=== PATIENT | male | born 1970 | race Caucasian/White ===

== ENCOUNTER → 2023-04-24 13:50 | Outpatient (REF) | payer OTHER, SELFPAY | LOC: DHCBC HW 13:50 | PROVIDERS: ATTENDING PHYSICIAN Internal Medicine; FAMILY PHYSICIAN Physician Assistant Medical | DX: I42.8 Other cardiomyopathies (principal); R06.00 Dyspnea, unspecified; I45.4 Nonspecific intraventricular block | CPT/HCPCS: 93306 ==

== ENCOUNTER → 2024-01-02 09:06 | Outpatient (REF) | payer OTHER, SELFPAY | LOC: HWRAD 09:06 | PROVIDERS: ATTENDING PHYSICIAN Urology; FAMILY PHYSICIAN Physician Assistant Medical | DX: C67.8 Malignant neoplasm of overlapping sites of bladder (principal) | CPT/HCPCS: 71260; 74178; Q9967 ==

== ENCOUNTER 2024-02-07 23:04 | Emergency (ER) | payer OTHER, SELFPAY ==
[2024-02-07 23:10] VITALS: BMI 30.5
[2024-02-07 23:23] VITALS: BP 118/89
[2024-02-07 23:33] LABS: % Basophils 0.8 % (0-2); % Eosinophils 0.3 % (0-6); % Immature Granulocytes 0.2 % (0-0.5); % Lymphocytes 46.8 % (20.5-51.1); % Monocytes 8.6 % (1.7-9.3); % Neutrophils 43.3 % (42.2-75.2); Absolute Basophils 0.1 10^3/uL (0-0.2); Absolute Lymphocytes 2.9 10^3/uL (1.2-3.4); Absolute Monocytes 0.5 10^3/uL (0.1-0.6); Absolute Neutrophils 2.7 10^3/uL (1.4-6.5); Hemoglobin 15.6 g/dL (13.0-18.0); Mean Corp Hgb Conc. 35.5 g/dL (33.0-37.0); Mean Corpuscular Hgb 30.8 pg (27.0-31.0); Mean Corpuscular Volume 86.8 fL (80.0-94.0); Mean Platelet Volume 9.3 fL (7.4-10.4); Nucleated Red Blood Cells % 0 % (-); Platelet Count 281 10^3/uL (130-400); Red Blood Cell Count 5.07 10^6/uL (4.70-6.10); Red Cell Dist. Width 11.9 % (11.5-14.5); White Blood Cell Count 6.3 10^3/uL (4.8-10.8)
[2024-02-07] MEDS: ATIVAN 1 MG IV (23:44)
[2024-02-07] MEDS: NSS 1000 IV (23:44)
[2024-02-08] VITALS: BP 128/85
[2024-02-08] LABS: ALT (SGPT) 93 U/L (0-50); AST (SGOT) 73 U/L (17-59); Albumin 4.9 g/dl (3.5-5.0); Alkaline Phosphatase 112 U/L (38-126); Blood Urea Nitrogen 22 mg/dl (9-20); Calcium 9.3 mg/dl (8.4-10.2); Carbon Dioxide 20 mmol/L (22-30); Chloride 100 mmol/L (98-107); Estimated Creatinine Clearance > 125 ml/min; Glucose 110 mg/dl (70-99); Potassium 4.1 mmol/L (3.5-5.1); Sodium 137 mmol/L (135-145); Total Protein 7.4 g/dl (6.3-8.2); eGFR > 60.00
[2024-02-08 00:37] LABS: Magnesium 2.2 mg/dl (1.6-2.3)
[2024-02-08 01:00] VITALS: BP 115/78
[2024-02-08 02:00] VITALS: BP 117/84
--- NOTE | 2024-02-08 02:41 | ED.GENMED ---
History of Present Illness
General
Chief Complaint: Alcohol Problem
Source: patient
Exam Limitations: none
Time Seen by Provider: 02/07/24 23:37
Nursing documentation reviewed up to this point in time: agreed with
History of Present Illness
History of Present Illness:
Patient presents to ED for evaluation with concern for developing or experiencing early signs of alcohol withdrawal. Patient who had been sober for an extended period of time, states that he relapsed and has been drinking alcohol daily for the past
5 days. Patient's last alcoholic consumption was approximately 12 hours prior to arrival. Patient is complaining of feeling nauseous and 'jittery'. Denies fever or chills. Denies diarrhea. Denies abdominal pain. Denies headache. Patient has
experienced similar alcohol withdrawal symptoms in the past. At this time, however, patient is not interested in inpatient alcohol rehab treatment, as he already has an outpatient therapy set up. Patient requesting treatment to alleviate alcohol
withdrawal symptoms.
Past History
Past History
ED Past Medical History: Psychiatric (Alcohol abuse, depression)
ED Past Surgical History: Urological
Social History
Tobacco: Smoker
Alcohol: Chronic alcoholic
Review of Systems
Review of Systems
Allergies reviewed?: Yes
All Other Systems: ROS reviewed and negative except as documented in HPI and ROS
Constitutional: Reports no symptoms; Denies fever or chills
Respiratory: Reports no symptoms; Denies trouble breathing
Cardiac: Reports no symptoms
ABD/GI: Reports nausea; Denies abdominal pain, vomiting or diarrhea
Musculoskeletal: Reports no symptoms
Skin: Reports no symptoms
Neurological: Reports no symptoms
Phy Exam
Physical Exam
Physical Exam:
Physical Exam
General: no apparent distress, not acutely ill. afebrile
Head: nc/at. eomi
Neck: supple. normal range of motion
Heart: s1/s2 regular rate and rhythm, no murmur. equal radial pulses.
Lungs: no acute respiratory distress. clear bilaterally
Abdomen: normal bowel sounds. not tender. no distention
Neuro: alert and oriented. no focal neurological deficits
Skin: no rash
Psychiatric: well kept. interactive and cooperative
Extremities: no edema. no calf tenderness.
Scores
Withdrawal Assessment of Alcohol
Withdrawal Assessment Completed?: Yes
Nausea and Vomiting: No nausea and no vomiting
Tactile Disturbances: None
Tremor: No tremor
Auditory Disturbances: Not present
Paroxysmal Sweats: No sweat visible
Visual Disturbances: Not present
Anxiety: No anxiety, at ease
Headache, Fullness in Head: Not present
Agitation: Normal activity
Orientation and clouding of sensorium: Oriented and can do serial additions
Total CIWA Score: 0
Alcohol Withdrawal Medication Recommendation: Equal to MSAS Score 0-4. Monitor & re-assess q2hrs, NO MEDICATION NEEDED
Course
Orders/Labs/Results
Orders:
Orders
02/07/24 23:26
Complete Blood Count/With Diff Urgent
Comprehensive Metabolic Panel Urgent
Magnesium Urgent
Comment: ADDON
02/07/24 23:41
0.9% Sodium Chloride 1000 ml [Nss] 1,000 ml IV BOLUS
Lorazepam [Ativan] 1 mg IV NOW STA
02/07/24 23:55
Add On- LAB Urgent
Tests Added?: magnesium
02/07/24 23:56
Electrocardiogram (*1) Urgent
Reason for Study: QTc Monitoring
EKG- Treatment ONCE
Abnormal Lab Results
02/07/24
23:26
Carbon Dioxide 20 L mmol/L
(22-30)
BUN 22 H mg/dl
(9-20)
Glucose 110 H mg/dl
(70-99)
AST 73 H U/L
(17-59)
ALT 93 H U/L
(0-50)
12/20/24 23:26
02/07/24 23:26
Vital Signs
Initial and Last Documented VS:
Initial Vital Signs
Temp Pulse Ox
98.2 F 98
02/07/24 23:10 02/07/24 23:10
Last Documented Vital Signs
Temp Pulse Resp BP Pulse Ox
98.2 F 105 19 117/84 92
02/07/24 23:10 02/08/24 02:45 02/08/24 02:45 02/08/24 02:00 02/08/24 02:30
MDM/Problems Addressed
MDM/Problems Addressed:
Patient reports significant improvement in symptoms after treatment. Otherwise, patient remains afebrile, hemodynamically stable, and nontoxic-appearing. Patient without any tremulous activity nor vomiting during observation ED. As patient
declined intervention for inpatient treatment, patient will be discharged home with short course of Ativan, to be used, as needed at home, along with continual outpatient therapy.
*Critical Care Note
Total Time (30-74mins, 75-104mins- exclusive of procedures): Not Applicable
ED Attending Note
-
Portions of this chart may have been created with voice recognition software.� Occasional wrong word or��sound alike� substitutions may have occurred due to the inherent limitations of voice recognition software.
Discharge Plan
Departure
Patient Disposition: Home (Routine Discharge)
Date of Disposition: 02/08/24
Time of Disposition: 02:45
Patient with high blood pressure during this ER visit?: No
Condition: Good
Discharge Problem:
Alcohol dependence
Instructions: Alcohol Use Disorder (DC)
Prescriptions:
New
lorazepam [Ativan] 1 mg tablet
1 mg PO TID PRN (Reason: alcohol withdrawal) Qty: 5 0RF
No Action
fish oil-dha-epa 1 EACH capsule
1 cap PO DAILY
L.acidoph,paracasei,B.animalis 1 EACH capsule
2 ea PO DAILY
aspirin [Rodrigo Low Dose Aspirin] 81 MG tablet,delayed release (DR/EC)
81 mg PO DAILY
cholecalciferol (vitamin D3) 1,000 UNITS tablet
1,000 units PO DAILY
glucosamine martinez 2KCl-chondroit 1 EACH tablet
2 ea PO DAILY
Trulicity 1.5 MG/0.5 ML pen injector
1.5 mg SQ WE
acetaminophen [Tylenol Extra Strength] 500 MG tablet
500 - 1,000 mg PO PRN PRN (Reason: pain)
Centrum Silver Men 1 EACH tablet
1 ea PO DAILY
metoprolol succinate 25 MG tablet extended release 24 hr
25 mg PO DAILY
magnesium citrate,mag oxide 250 mg Capsule
1 mg PO DAILY
citalopram 40 mg Tablet
40 mg PO DAILY
Balance Of Nature Fruit
3 cap PO DAILY
Balance Of Nature Vegetable
3 cap PO DAILY
oxycodone 5 mg Tablet
5 mg PO Q4HPRN PRN (Reason: moderate pain) Qty: 15 0RF
diclofenac sodium 75 mg tablet,delayed release (DR/EC)
75 mg PO BID Qty: 20 0RF
Referrals:
Samm March DO [Family Provider] -
Activity Restrictions/Additional Instructions:
As discussed, please continue to follow-up with your outpatient group for continual treatment of alcohol dependence. Your prescription has been sent electronically to [facility] in [place].
Interventions
Interventions:
*Risk Screen - Suicide Last Done: 02/07/24 23:10
*General Assessment Last Done: 02/07/24 23:10
*Neglect/Abuse Screening Last Done: 02/07/24 23:10
ED- Fall Risk Assessment Last Done: 02/08/24 03:03
*ED COVID-19 Vaccine History Last Done: 02/07/24 23:10
*Nursing Disposition Last Done: 02/08/24 03:03
ED- Neurological Assessment Last Done: 02/07/24 23:10
ED-Psychological Assessment Last Done: 02/07/24 23:24
Discharge Date and Time
Discharge Date/Time: 02/08/24 03:04
Print Language: KISWAHILI
== END 2024-02-08 03:04 | disposition home or self-care (01) ==
LOC: EMR 23:04
PROVIDERS: EMERGENCY PHYSICIAN Emergency Medicine; FAMILY PHYSICIAN Family Medicine
DX: F10.20 Alcohol dependence, uncomplicated (principal); F32.A Depression, unspecified; F17.200 Nicotine dependence, unspecified, uncomplicated
CPT/HCPCS: 99283; 96374; 80053; 83735; 85025; 93005

== ENCOUNTER 2024-04-20 08:03 | Inpatient (IN) | payer OTHER, SELFPAY ==
[2024-04-17 19:29] VITALS: BP 161/100
[2024-04-17] MEDS: ATIVAN 2 MG IV (19:42)
[2024-04-17 19:45] LABS: % Basophils 0.4 % (0-2); % Eosinophils 0.1 % (0-6); % Immature Granulocytes 0.6 % (0-0.5); % Lymphocytes 22.2 % (20.5-51.1); % Monocytes 5.8 % (1.7-9.3); % Neutrophils 70.9 % (42.2-75.2); Absolute Lymphocytes 1.5 10^3/uL (1.2-3.4); Absolute Monocytes 0.4 10^3/uL (0.1-0.6); Absolute Neutrophils 4.7 10^3/uL (1.4-6.5); Hematocrit 41.2 % (39.0-52.0); Hemoglobin 14.6 g/dL (13.0-18.0); Mean Corp Hgb Conc. 35.4 g/dL (33.0-37.0); Mean Corpuscular Hgb 30.4 pg (27.0-31.0); Mean Corpuscular Volume 85.8 fL (80.0-94.0); Mean Platelet Volume 9.8 fL (7.4-10.4); Nucleated Red Blood Cells % 0 % (-); Platelet Count 221 10^3/uL (130-400); Red Cell Dist. Width 12.4 % (11.5-14.5); White Blood Cell Count 6.7 10^3/uL (4.8-10.8)
[2024-04-17 19:59] LABS: ALT (SGPT) 113 U/L (0-50); AST (SGOT) 100 U/L (17-59); Albumin 5.1 g/dl (3.5-5.0); Alkaline Phosphatase 143 U/L (38-126); Blood Urea Nitrogen 14 mg/dl (9-20); Calcium 9.1 mg/dl (8.4-10.2); Carbon Dioxide 17 mmol/L (22-30); Chloride 101 mmol/L (98-107); Glucose 95 mg/dl (70-99); Potassium 4.3 mmol/L (3.5-5.1); Sodium 137 mmol/L (135-145); Total Bilirubin 1.4 mg/dl (0.2-1.3); Total Protein 7.7 g/dl (6.3-8.2); eGFR > 60.00
[2024-04-17 20:05] LABS: Alcohol None Detected
--- NOTE | 2024-04-17 20:54 | ED.GENMED ---
History of Present Illness
General
Chief Complaint: Alcohol Problem
Source: patient
Exam Limitations: none
Time Seen by Provider: 04/17/24 20:44
Nursing documentation reviewed up to this point in time: agreed with
History of Present Illness
History of Present Illness:
53-year-old male with a past medical history of hypertension, cardiomyopathy, prostate and bladder cancer status post resection and urostomy, diabetes, alcohol abuse who presents to the emergency department with concern for alcohol
withdrawal.Patient reports that he has a history of alcohol use but has been successful multiple times with staying sober in the past; most recently he says he was 8 years sober until January 2024. Has been drinking heavily since. He says that he
primarily drinks bourbon he says about 1/5 of bourbon a day. His last drink was around 8 AM. He says that in the evening he started to have withdrawal symptoms. He says he was having severe tremors, nausea and profuse vomiting. He says he was
sweating. He says he was having hallucinations. He says he has had severe alcohol withdrawal in the past and so he came to the ER to be evaluated and treated. He did receive Ativan prior to my initial assessment and says symptoms have improved.
Still has some nausea and mild tremor but not nearly as severe as initially. He did apparently have some chest pain earlier seems to have resolved as well. He denies any other complaints. Denies any drug use.
Past History
Past History
ED Past Medical History: Psychiatric (Alcohol abuse, depression)
ED Past Surgical History: Urological
Social History
Tobacco: Smoker
Alcohol: Chronic alcoholic
Review of Systems
Review of Systems
All Other Systems: ROS reviewed and negative except as documented in HPI and ROS
Constitutional: Denies fever
EENT: Denies sore throat or runny nose
Respiratory: Denies trouble breathing
Cardiac: Reports chest pain
ABD/GI: Reports nausea and vomiting; Denies abdominal pain
: Denies flank pain
Musculoskeletal: Denies neck pain or back pain
Neurological: Reports headache and other (Tremor); Denies dizzy
Psychiatric: Reports anxiety and hallucinations; Denies suicidal
Phy Exam
Physical Exam
Physical Exam:
General: Awake, alert, oriented x3; no acute distress
Head: Normocephalic, atraumatic
Eyes: Conjunctiva normal, sclera anicteric
Throat: Airway intact, handling secretions
Neck: Trachea midline, supple without meningismus
Lungs: Clear to auscultation bilaterally, no wheezing, rales, rhonchi
Heart: Tachycardia with regular rhythm, no murmurs, gallops, or rubs
Abd: Soft, non distended, nontender, urostomy in place
Skin: Warm, moist
Neuro: No gross deficits; mild tremor noted with movement but no resting tremor
Extremities: No edema in extremities, equal pulses in all extremities
Scores
Heart Failure Risk
Heart Failure Risk Score: Not Applicable
Heart Score for Chest Pain Patients
STEMI patient?: Not applicable
Withdrawal Assessment of Alcohol
Withdrawal Assessment Completed?: Yes
Nausea and Vomiting: Mild nausea with no vomiting
Tactile Disturbances: None
Tremor: Moderate, with patient's arms extended
Auditory Disturbances: Not present
Paroxysmal Sweats: No sweat visible
Visual Disturbances: Not present
Anxiety: Mild anxiety
Headache, Fullness in Head: Very mild
Agitation: Normal activity
Orientation and clouding of sensorium: Oriented and can do serial additions
Total CIWA Score: 7
Alcohol Withdrawal Medication Recommendation: Equal to MSAS Score 0-4. Monitor & re-assess q2hrs, NO MEDICATION NEEDED
Course
Orders/Labs/Results
Orders:
Orders
04/17/24 19:27
Electrocardiogram (*1) Urgent
Reason for Study: Abdominal Pain
EKG- Treatment ONCE
04/17/24 19:35
Lorazepam [Ativan] 2 mg IV NOW STA
04/17/24 19:38
Alcohol Urgent
Complete Blood Count/With Diff Urgent
Comprehensive Metabolic Panel Urgent
04/17/24 20:55
0.9% Sodium Chloride 1000 ml [Nss] 1,000 ml IV BOLUS
FOLic ACID [Folvite] 1 mg 0.9% Sodium Chloride 50 ml [Nss] 50 ml IV ONCE
Thiamine Injection 100 mg IV NOW STA
04/17/24 21:01
Ondansetron Injectable [Zofran] 4 mg IV NOW STA
04/17/24 21:03
Electrocardiogram (*1) Urgent
Reason for Study: Chest Pain
EKG- Treatment ONCE
04/17/24 21:30
Alcohol Urgent
Drug Screen, Urine [Urine Drug Abuse Screen] Urgent
Date Specimen was Collected: 04/17/24
Time Specimen was Collected: 21:14
Troponin I Urgent
04/17/24 23:00
Dextrose 5%/0.9%Sodchl 1000 ml [D5/0.9% Sodium Chloride] 1,000 ml IV 100 mls/hr
FOLic ACID [Folvite] 1 mg 0.9% Sodium Chloride 50 ml [Nss] 50 ml IV ONCE
Flush (0.9% Sodium Chloride) [Flush (Nss)] See Dose Instructions IV PER PROTOCOL
Abnormal Lab Results
04/17/24
19:38
Immature Gran % 0.6 H %
(0-0.5)
Carbon Dioxide 17 L mmol/L
(22-30)
Total Bilirubin 1.4 H mg/dl
(0.2-1.3)
AST 100 H U/L
(17-59)
ALT 113 H U/L
(0-50)
Alkaline Phosphatase 143 H U/L
(38-126)
Albumin 5.1 H g/dl
(3.5-5.0)
04/17/24 19:38
04/17/24 19:38
Vital Signs
Initial and Last Documented VS:
Initial Vital Signs
Temp Pulse Resp BP Pulse Ox
36.7 C 112 20 161/100 97
04/17/24 19:29 04/17/24 19:29 04/17/24 19:29 04/17/24 19:29 04/17/24 19:29
Last Documented Vital Signs
Temp Pulse Resp BP Pulse Ox
36.7 C 91 14 161/100 95
04/17/24 21:38 04/17/24 21:45 04/17/24 21:45 04/17/24 19:29 04/17/24 21:45
MDM/Problems Addressed
Differential Diagnosis Includes:
Alcohol withdrawal
MDM/Problems Addressed:
53-year-old male presents with alcohol withdrawal; last drink 8 AM received Ativan prior to my assessment symptoms have greatly improved. Withdrawal scoring on my assessment as noted above. No need for additional Ativan at this point but will need
to continue to monitor as he has history of significant withdrawal in the past. I did discuss with [facility] to evaluate. Usual labs were sent off in triage shows abnormal LFTs essentially stable. He does have metabolic acidosis with elevated anion
gap suspect alcoholic ketoacidosis. Added troponin given his complaint of chest pain as well as an EKG. Check alcohol and UDS. Treat with thiamine and folate, fluids.
Alcohol level negative. Troponin undetectable. UDS negative. Patient hypertensive, tachycardic, consistent mild tremor but resting comfortably no diaphoresis, no nausea or vomiting; hold on additional Ativan for now. Admit for continued
monitoring for alcohol withdrawal. Discussed with hospitalist.
Chronic conditions affecting care:
Alcohol use
*Pulse Oximetry
Patient hypoxic: no
*EKG
Interpreted by ED Provider?: Yes
Heart Rate: 81
Rate: normal
Rhythm: sinus
Pitts: normal axis
Interval: normal interval
QRS Pattern: normal QRS
Ischemia: no ischemia
*Critical Care Note
Total Time (30-74mins, 75-104mins- exclusive of procedures): Not Applicable
Data Reviewed
Review of Other/Old Records Reveals: Labs and Records
Source: patient and records
ED Attending Note
-
Portions of this chart may have been created with voice recognition software.� Occasional wrong word or��sound alike� substitutions may have occurred due to the inherent limitations of voice recognition software.
Discharge Plan
Departure
Patient Disposition: Admit
Date of Disposition: 04/17/24
Time of Disposition: 22:15
Admit to doctor: Dionicio
Presentation/result/management discussed w/ accepting MD/DO: Hospitalist
Discharge Problem:
Alcohol withdrawal, Alcoholic ketoacidosis
Prescriptions:
No Action
fish oil-dha-epa 1 EACH capsule
1 cap PO DAILY
aspirin [Rodrigo Low Dose Aspirin] 81 MG tablet,delayed release (DR/EC)
81 mg PO HS
cholecalciferol (vitamin D3) 1,000 UNITS tablet
1,000 units PO DAILY
glucosamine martinez 2KCl-chondroit 1 EACH tablet
2 ea PO DAILY
metoprolol succinate 25 MG tablet extended release 24 hr
25 mg PO HS
sildenafil 50 mg Tablet
50 mg PO DAILYPRN PRN (Reason: ed)
Theragen Tablet
1 tab PO DAILY
citalopram 20 mg Tablet
20 mg PO HS
albuterol sulfate 90 mcg/actuation Hfa Aerosol Inhaler
2 puff INHALATION R Q6HPRN PRN (Reason: sob)
Visbiome 112.5 billion cell Capsule
1 cap PO DAILY
magnesium oxide 400 mg magnesium Tablet
400 mg PO DAILY
Interventions
Interventions:
*General Assessment Last Done: 04/17/24 19:29
ED- Fall Risk Assessment Last Done: 04/17/24 21:47
ED- Neurological Assessment Last Done: 04/17/24 21:38
ED-Psychological Assessment Last Done: 04/17/24 21:38
Discharge Date and Time
Print Language: CHINESE
[2024-04-17] MEDS: THIAMINE INJECTION 100 MG IV (21:25)
[2024-04-17] MEDS: ZOFRAN 4 MG IV (21:25)
[2024-04-17 21:32] VITALS: BMI 33.6
[2024-04-17] MEDS: NSS 1000 IV (21:36)
[2024-04-17 21:53] LABS: Amphetamines Negative (Negative); Barbiturates Negative (Negative); Benzodiazepines Negative (Negative); Buprenorphine Negative (Negative); Cocaine Negative (Negative); Marijuana Negative (Negative); Methadone Negative (Negative); Methamphetamines Negative (Negative); Opiates Negative (Negative); Phencyclidine Negative (Negative); Tricyclic Antidepressants Negative (Negative)
[2024-04-17 22:00] VITALS: BP 146/90
[2024-04-17 22:00] LABS: Alcohol None Detected
[2024-04-17 22:10] LABS: Troponin I < 0.012 ng/ml
[2024-04-17] MEDS: D5/0.9% SODIUM CHLORIDE 1000 IV (22:37)
[2024-04-17 23:00] VITALS: BP 135/93
[2024-04-17] MEDS: FOLVITE 50.2 MG IV (23:30)
--- NOTE | 2024-04-17 23:38 | HPS.HSE ---
Family Physician
-
Family Physician:
Chief Complaint
-
Alcohol withdrawal symptoms
History of Present Illness
This is a 53-year-old male who has a past medical history significant for KANDIS, history of tobacco use, history of alcohol abuse and withdrawal, hyperlipidemia, type 2 diabetes not currently on any medications, history of prostate cancer status post
surgery, history of bladder cancer status post surgery, nonischemic cardiomyopathy with improvement in cardiac function who presents to the emergency department with withdrawal symptoms including agitation, hallucinations and tremors.
Patient reported that he drinks about three quarters of a liter of bourbon daily. He had a drink last night. When he arose this morning he felt nauseated and vomited. He started drinking again for symptom relief. However continued to have nausea
vomiting so he stopped drinking. He then developed tremors continued nausea vomiting and then reported to have seen people when they were not there. He reports that he has not been in the hospital for withdrawal seizures in the past but felt that
he had had a withdrawal seizure at home in the past.
Patient reported that he has been sober for several years beside drinking again 2 months ago due to stressors in the family. He denies any other recreational drug use. He continues to smoke tobacco daily.
In the emergency department he received 1 dose of lorazepam and he has been comfortable and sedated since.
Blood pressure was 160/100 with a pulse of 9181 was satting 95% on room air. ECG shows a normal sinus rhythm at a rate of 81. CBC was unremarkable. Electrolytes were stable except for bicarb of 17. Alcohol level was undetected. He had mild LFT
and T. bili abnormalities.
Medical History
Past Medical History
Past Medical History: Reports Cancer (Bladder cancer status post surgery), CHF (Nonischemic cardiomyopathy with recovered EF), Hypercholesterolemia, NIDDM, Psychiatric (Tobacco dependence, alcohol dependence, anxiety) and Other (KANDIS)
Past Surgical History: Reports Urological (Status post prostatectomy, bladder resection)
Social History
Tobacco: Smoker (1/2 pack/day)
Alcohol: Daily (0.75 L liquor daily)
Drug: None
Personal: Single
Living: With Family
Family History
Family History: Not pertinent
Allergies / Home Medications
Allergies reflects when Allergies were last updated in [employer].
Home Medications with original date entered in [employer]
Allergy/Medication List:
Allergies
Allergy/AdvReac Type Severity Reaction Status Date / Time
bee venom protein (honey bee) Allergy Swelling Verified 04/17/24 19:29
Home Medications
fish oil-dha-epa 1,200 mg-144 mg-216 mg capsule 1 cap PO DAILY Supplement 01/01/18
aspirin 81 mg tablet,delayed release (Rodrigo Low Dose Aspirin) 81 mg PO HS Blood clot prevention/tx 02/16/21
cholecalciferol (vitamin D3) 25 mcg (1,000 unit) tablet 1,000 units PO DAILY Supplement 02/16/21
glucosamine sulf dipotassium Cl 500 mg-chondroitin sulf 400 mg tablet 2 ea PO DAILY Supplement 02/16/21
metoprolol succinate 25 mg tablet,extended release 24 hr 25 mg PO HS Blood pressure 08/16/21
Lactobac no.2-Bifidobac no.1-S. thermo 112.5 billion cell capsule (Visbiome) 1 cap PO DAILY 04/17/24
albuterol sulfate 90 mcg/actuation aerosol inhaler 2 puff inhalation R Q6HPRN PRN sob 04/17/24
citalopram 20 mg tablet 20 mg PO HS 04/17/24
magnesium oxide 400 mg PO DAILY 04/17/24
sildenafil 50 mg tablet 50 mg PO DAILYPRN PRN ed 04/17/24
therapeutic multivitamin 1 tab PO DAILY 04/17/24
Review of Systems
-
History Source: Patient
Constitutional: Reports No Symptoms
EENT: Reports No Symptoms
Respiratory: Reports No Symptoms
Cardiac: Reports No Symptoms
Abdomen/GI: Reports Nausea and Vomiting
: Reports No Symptoms
Musculoskeletal: Reports No Symptoms
Skin: Reports No Symptoms
Neurological: Reports No Symptoms
Endocrine: Reports No Symptoms
Hematologic/Lymphatic: Reports No Symptoms
Psych: Reports No Symptoms
Physical Exam
Vital Signs
Vital Signs
Temp Pulse Resp BP Pulse Ox
98.1 F 91 14 161/100 95
04/17/24 21:38 04/17/24 21:45 04/17/24 21:45 04/17/24 19:29 04/17/24 21:45
Physical Exam
General: Well Developed, Well Nourished and Comfortable
HEENT: NormoCephalic, Anicteric, Moist mucous membranes and Atraumatic
Respiratory: Clear
Cardiac: S1/S2 and Regular Rhythm
Breast: Deferred by me
GI: Soft
Rectal: Deferred by Provider
Genito-urinary: Deferred by me
Musculoskeletal: No Clubbing, No Cyanosis and No Edema
Skin: Warm
Neuro: AO x 3 and Nonfocal/grossly intact
Hematologic/Lymphatic: No Lymphadenopathy
Psych: Calm
Laboratory Results
-
04/17/24 19:38
04/17/24 19:38
Laboratory Results
Total Bilirubin 1.4 mg/dl (0.2-1.3) H 04/17/24 19:38
AST 100 U/L (17-59) H 04/17/24 19:38
ALT 113 U/L (0-50) H 04/17/24 19:38
Alkaline Phosphatase 143 U/L (38-126) H 04/17/24 19:38
Troponin I < 0.012 ng/ml 04/17/24 21:30
Data Reviewed
-
Medical Tests (Nuc Med, Echo, EKG etc): Image Personally Visualized and interpreted
Lab Data: Labs Reviewed by me
Old Records: Reviewed
Impression/Plan
-
IMPRESSION:
Patient admitted with moderate alcohol withdrawal symptoms. He is currently with a CIWA score that is less than 3.
PLAN:
ETOH withdrawal
- admit to telemetry
- continue CIWA protocol with lorazepam
- IV fluids, thiamine, folate
- patient wants to return to outpatient rehab/meetings, did not consult psych, consulted case management
- declined inpatient rehab
- transaminitis due to etoh, follow up with cessation of etoh
- will continue his citalopram
- supportive measures
Bladder Ca s/p ileal conduit and end-ileostomy
- ostomy bag in place, drained as necessary
DVT PPX - lovenox sq
Code status - Full Code
[2024-04-18] VITALS (8 sets, daily range): BP systolic 121–157; BP diastolic 78–97; BMI 33.2
[2024-04-18] MEDS: NSS (PRESERVATIVE FREE) 0.5 ML IV (01:45)
[2024-04-18] MEDS: ATIVAN 1 MG IV ×2 (01:45→22:09)
[2024-04-18] MEDS: D5/0.9% SODIUM CHLORIDE 1000 IV ×3 (02:05→19:23)
--- NOTE | 2024-04-18 02:15 | PTCARENOTE ---
Pt brought up to 3 west via stretcher to room 332. Pt walked from stretcher to bed safely. Pt AAOx3, able to make needs known. Pt oriented to room, call kenyon within reach. Will continue to monitor pt.
[2024-04-18 07:51] LABS: Glucose - Point of Care 126 mg/dl (70-99)
[2024-04-18] MEDS: ATIVAN 1 MG PO ×3 (07:59→20:53)
[2024-04-18] MEDS: FOLVITE 1 MG PO (07:59)
[2024-04-18] MEDS: VITAMIN D3 (cholecalciferol) 25 MCG PO (07:59)
[2024-04-18] MEDS: THIAMINE INJECTION 200 MG IV ×2 (07:59→20:53)
[2024-04-18] MEDS: ANESTHETIC LOZENGE 1 LOZENGE PO ×2 (09:12→13:12)
[2024-04-18 11:11] LABS: Glycohemoglobin (HgbA1c) 6.1 % (4.0-5.6)
[2024-04-18 12:12] LABS: Glucose - Point of Care 137 mg/dl (70-99)
[2024-04-18 13:38] LABS: ALT (SGPT) 93 U/L (0-50); AST (SGOT) 67 U/L (17-59); Albumin 4.5 g/dl (3.5-5.0); Alkaline Phosphatase 105 U/L (38-126); Direct Bilirubin 0.3 mg/dl (0.0-0.4); Total Bilirubin 1.4 mg/dl (0.2-1.3); Total Protein 6.6 g/dl (6.3-8.2)
--- NOTE | 2024-04-18 14:40 | W.PN.HOSP.TC ---
Today's Communication/Plan
-
Discharge planning
Assessment / Plan
Assessment / Plan
53-year-old male with alcohol withdrawal symptoms
CVS: S1-S2 normal
Chest: CTA B/L
Abdomen: Soft, NT / Bowel sounds present
Extremities: No edema
[employer]: Non focal exam, no tremors
# Alcohol withdrawal
Continue MSAS protocol with lorazepam
Continue thiamine and folate
Patient wants to return to outpatient and not inpatient
Transaminitis secondary to alcohol
He is OK with [facility] referral
LFTs better
# History of cardiomegaly/nonischemic cardiomyopathy -continue metoprolol
Echo 04/24/2023-normal LV size and function. EF 60 to 65%. No valvular disease
Cardiac catheterization December 2017-mild global hypokinesis with a EF 46%, normal coronaries
# History of diabetes per chart -Hemoglobin A1c 6.1
# History of bladder cancer status post radical cystoprostatectomy with ileal conduit and end ileostomy 12/19/2021
History of urethral stricture with repair decades ago
# Sleep apnea-CPAP intolerant
# Obesity per BMI criteria
# Depression/anxiety-continue Lexapro
# Smoker-cessation counseling
# DVT prophylaxis-Lovenox
# Full code
D/W RN
Called [facility] and left a message
Lives with parents, currently not employed.
Anticipated Discharge: Within 24 hours
Subjective/Interval History
-
Date of Service: April 18, 2024
Objective Data
-
Labs:
Laboratory Results
04/18/24
08:02
Total Bilirubin 1.4 H
AST 67 H
ALT 93 H
Alkaline Phosphatase 105
Vital Signs:
Vital Signs
Temp Pulse Resp BP Pulse Ox
97.9 F 87 16 133/78 95
04/18/24 11:00 04/18/24 11:00 04/18/24 11:00 04/18/24 11:00 04/18/24 11:00
I&O
04/17/24 04/18/24 04/19/24
06:59 06:59 06:59
Output Total 500 / 500
Balance -500 / -500
[2024-04-18 15:06] LABS: Glucose - Point of Care 136 mg/dl (70-99)
[2024-04-18] MEDS: ZOFRAN 4 MG IV (15:45)
[2024-04-18 16:15] LABS: Blood Urea Nitrogen 15 mg/dl (9-20); Calcium 8.6 mg/dl (8.4-10.2); Carbon Dioxide 21 mmol/L (22-30); Chloride 103 mmol/L (98-107); Estimated Creatinine Clearance > 125 ml/min; Glucose 104 mg/dl (70-99); Potassium 3.8 mmol/L (3.5-5.1); Sodium 136 mmol/L (135-145); eGFR > 60.00
[2024-04-18 17:08] LABS: Glucose - Point of Care 55 mg/dl (70-99)
[2024-04-18 17:39] LABS: Glucose - Point of Care 129 mg/dl (70-99)
[2024-04-18] MEDS: LOVENOX 40 MG SC (17:41)
[2024-04-18 22:03] LABS: Glucose - Point of Care 97 mg/dl (70-99)
[2024-04-18] MEDS: TOPROL XL 25 MG PO (22:08)
[2024-04-18] MEDS: ASPIR LOW (ENTERIC COATED) 81 MG PO (22:08)
[2024-04-18] MEDS: CELEXA 20 MG PO (22:10)
[2024-04-18] MEDS: NSS (PRESERVATIVE FREE) 10 ML IV (22:12)
[2024-04-19 03:00] VITALS: BP 155/88
[2024-04-19] MEDS: D5/0.9% SODIUM CHLORIDE 1000 IV (04:02)
[2024-04-19] MEDS: THIAMINE INJECTION 200 MG IV ×2 (08:20→22:32)
[2024-04-19] MEDS: VITAMIN D3 (cholecalciferol) 25 MCG PO (08:20)
[2024-04-19] MEDS: FOLVITE 1 MG PO (08:20)
[2024-04-19 08:27] LABS: Glucose - Point of Care 107 mg/dl (70-99)
[2024-04-19 11:00] VITALS: BP 150/107
--- NOTE | 2024-04-19 11:16 | CM ---
Addendum entered by Zee Weber RN 04/19/24 13:26:
Discharge cancelled by MD.
Plan home tomorrow.
Original Note:
Patient with Dx Alcohol withdrawal. MSAS per nursing.
Spoke with patient who resides with his parents in a two story home with one step to enter.
The patient was independent with ADLs and ambulation without using an assistive device.
DME - walkers, wc, canes
No prior VN.
PCP - Leandra Eng
Pharmacy - [facility]
Patient agreed to speak with [facility].
Spoke with [facility]ATA Evans; he met with the patient who had previously attended AA, and who agreed to outpatient referrals with [facility].
The patient says he feels ready for d/c home today.
His brother will provide transport home.
No CM d/c needs identified.
Plan home today.
[2024-04-19] MEDS: ATIVAN 1 MG IV (11:49)
[2024-04-19 12:31] LABS: Glucose - Point of Care 113 mg/dl (70-99)
--- NOTE | 2024-04-19 13:21 | W.PN.HOSP.TC ---
Today's Communication/Plan
-
If alcohol withdrawal symptoms improve can be discharged tomorrow with outpatient services.
[facility] and [facility] wants to follow-[facility] .
Assessment / Plan
Assessment / Plan
53-year-old male with alcohol withdrawal symptoms
CVS: S1-S2 normal
Chest: CTA B/L
Abdomen: Soft, NT / Bowel sounds present
Extremities: No edema
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
# Alcohol withdrawal
Continue MSAS protocol with lorazepam
Continue thiamine and folate
Patient wants to return to outpatient and not inpatient
Transaminitis secondary to alcohol
[facility] referral
LFTs better
MSAS was 8 last night and also today tachycardic
# History of cardiomegaly/nonischemic cardiomyopathy -continue metoprolol
Echo 04/24/2023-normal LV size and function. EF 60 to 65%. No valvular disease
Cardiac catheterization December 2017-mild global hypokinesis with a EF 46%, normal coronaries
# History of diabetes per chart -Hemoglobin A1c 6.1
# History of bladder cancer status post radical cystoprostatectomy with ileal conduit and end ileostomy 12/19/2021
History of urethral stricture with repair decades ago
# Sleep apnea-CPAP intolerant
# Obesity per BMI criteria
# Depression/anxiety-continue Lexapro
# Smoker-cessation counseling
# DVT prophylaxis-Lovenox
# Full code
D/W RN
Discussed with case management
Anticipated Discharge: Within 24 hours
Subjective/Interval History
-
Date of Service: April 19, 2024
Objective Data
-
Vital Signs:
Vital Signs
Temp Pulse Resp BP Pulse Ox
98 F 98 16 150/107 98
04/19/24 11:00 04/19/24 11:00 04/19/24 11:00 04/19/24 11:00 04/19/24 11:00
I&O
04/18/24 04/19/24 04/20/24
06:59 06:59 06:59
Output Total 500 / 500
Balance -500 / -500
[2024-04-19 15:00] VITALS: BP 159/99
[2024-04-19] MEDS: ZOFRAN 4 MG IV (16:43)
[2024-04-19] MEDS: ATIVAN 1 MG PO ×2 (16:51→22:34)
[2024-04-19] MEDS: LOVENOX 40 MG SC (18:20)
[2024-04-19 18:24] LABS: Glucose - Point of Care 92 mg/dl (70-99)
[2024-04-19 20:00] VITALS: BP 125/91
[2024-04-19 21:42] LABS: Glucose - Point of Care 97 mg/dl (70-99)
[2024-04-19] MEDS: TOPROL XL 25 MG PO (22:32)
[2024-04-19] MEDS: ASPIR LOW (ENTERIC COATED) 81 MG PO (22:32)
[2024-04-19] MEDS: CELEXA 20 MG PO (22:34)
[2024-04-19 23:52] VITALS: BP 131/92
[2024-04-20 04:43] VITALS: BP 147/91; BMI 32.5
[2024-04-20 06:56] LABS: ALT (SGPT) 109 U/L (0-50); AST (SGOT) 92 U/L (17-59); Albumin 3.9 g/dl (3.5-5.0); Alkaline Phosphatase 95 U/L (38-126); Blood Urea Nitrogen 11 mg/dl (9-20); Calcium 9.5 mg/dl (8.4-10.2); Carbon Dioxide 28 mmol/L (22-30); Chloride 103 mmol/L (98-107); Estimated Creatinine Clearance > 125 ml/min; Glucose 110 mg/dl (70-99); Potassium 3.8 mmol/L (3.5-5.1); Sodium 139 mmol/L (135-145); Total Bilirubin 0.8 mg/dl (0.2-1.3); Total Protein 6.4 g/dl (6.3-8.2); eGFR > 60.00
[2024-04-20 08:05] LABS: Hematocrit 37.4 % (39.0-52.0); Hemoglobin 13.1 g/dL (13.0-18.0); Mean Corpuscular Hgb 30.8 pg (27.0-31.0); Mean Corpuscular Volume 87.8 fL (80.0-94.0); Mean Platelet Volume 10.5 fL (7.4-10.4); Platelet Count 143 10^3/uL (130-400); Red Blood Cell Count 4.26 10^6/uL (4.70-6.10); Red Cell Dist. Width 12.2 % (11.5-14.5); White Blood Cell Count 4.2 10^3/uL (4.8-10.8)
[2024-04-20 08:18] VITALS: BP 133/87
[2024-04-20] MEDS: VITAMIN D3 (cholecalciferol) 25 MCG PO (08:34)
[2024-04-20] MEDS: THIAMINE INJECTION 200 MG IV (08:34)
[2024-04-20] MEDS: FOLVITE 1 MG PO (08:34)
[2024-04-20 08:38] LABS: Glucose - Point of Care 115 mg/dl (70-99)
--- NOTE | 2024-04-20 09:02 | W.PN.HOSP.TC ---
Today's Communication/Plan
-
Will talk to CM for coordinating [facility]
Potentially discharge later today
Assessment / Plan
Assessment / Plan
53-year-old male presenting with alcohol withdrawal symptoms.
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
History of bladder cancer status post radical cystoprostatectomy with ileal conduit and end ileostomy 12/19/2021
History of urethral stricture with repair
KANDIS
Tobacco use disorder
Alcohol use disorder (been to rehab before)
Hypertension/nonischemic cardiomyopathy
Depression/anxiety
Obesity
# Alcohol withdrawal/alcohol use disorder
-Continue MSAS protocol-MSAS=1 and RASS=0 this morning
-Continue thiamine and folate, Ativan as needed
-Only required Ativan 1 mg last night
-Patient was advised regarding decreased intake/cessation
-[facility] referral sent
-Chronic alcoholic transaminitis
-Currently not tachycardic or agitated, no tremors seen-does not report nausea or vomiting
-Alert and oriented
-Can be potentially discharge later today
# History of cardiomegaly/nonischemic cardiomyopathy -continue metoprolol
-Echo 04/24/2023-normal LV size and function. EF 60 to 65%. No valvular disease
-Cardiac catheterization December 2017-mild global hypokinesis with a EF 46%, normal coronaries
-Continue aspirin and metoprolol 25
#History of diabetes per chart review
-Hemoglobin A1c 6.1
-Not taking any oral meds at home
-Low SSI
# Sleep apnea
-Not on CPAP at home
-Currently saturating well on room air
# Depression/anxiety
-Continue Lexapro
# Tobacco use disorder
-Advised patient regarding cessation
DVT prophylaxis
Lovenox
Anticipated Discharge: Within 24 hours
Subjective/Interval History
-
Date of Service: April 20, 2024
Patient does not offer any complaints.
Objective Data
-
Labs:
Laboratory Results
04/20/24
05:56
WBC 4.2 L
Hgb 13.1
Hct 37.4 L
Plt Count 143 D
Sodium 139
Potassium 3.8
Chloride 103
Carbon Dioxide 28
BUN 11
Creatinine 0.7
Glucose 110 H
Calcium 9.5
Total Bilirubin 0.8
AST 92 H
ALT 109 H
Alkaline Phosphatase 95
Vital Signs:
Vital Signs
Temp Pulse Resp BP Pulse Ox
97.9 F 79 12 133/87 94
04/20/24 08:18 04/20/24 08:18 04/20/24 08:18 04/20/24 08:18 04/20/24 08:18
I&O
04/19/24 04/20/24 04/21/24
06:59 06:59 06:59
Intake Total 960 / 960
Output Total 1350 / 1350
Balance -390 / -390
Review of Systems
-
History Source: Patient
All other systems: Reviewed and negative
Physical Exam
-
General: Well Developed and No Apparent Distress
HEENT: Normocephalic, Atraumatic and Moist Mucous Membranes
Respiratory: Clear to Auscultation
Cardiac: Regular Rhythm and S1/S2
GI: Soft, Nontender and Distended
Skin: Warm and Dry
Neuro: Awake, Alert, Oriented and AO x 3; Negative Tremors or Slurred Speech
Psych: Calm and Intact Judgement/Insight
--- NOTE | 2024-04-20 11:18 | CM ---
Patient seen at bedside. Patient confirmed his plan for discharge to go to [facility] for follow up and to return to AA meetings. Patient asked for [facility] to come to talk to him and CM called to liaison who stated they would be up in approx an hour.
information relayed to community organizer. CM will continue to follow for discharge planning needs.'
PLan; home with AA follow up with [facility] for additional programs.
[2024-04-20 11:30] VITALS: BP 143/91
[2024-04-20 11:54] LABS: Glucose - Point of Care 176 mg/dl (70-99)
--- NOTE | 2024-04-20 12:15 | W.PN.UPDATE ---
Update Note
Progress Note Update
I saw and evaluated the patient. I reviewed the resident�s note and agree with findings and plan as documented in the resident�s note.
Denies diaphoresis or hallucinations.
Gen: NAD, AAOx3.
Eyes: EOMI, PERRLA, no scleral icterus.
Neck: supple.
CV: RRR, +S1/S2, no m/r/g.
Resp: CTAB, no rales, wheezes, or rhonchi.
Abd: +BS, soft, NT, ND
Skin: No rashes.
Neuro: CN 2-12 intact, non-focal.
Psych: Normal mood and affect.
Acute alcohol withdrawal:
-cont MSAS protocol (thiamine/folate/PRN ativan)
-Transaminitis due to alcohol abuse, follow outpt
Other problems:
h/o cardiomegaly/nonischemic cardiomyopathy: cont BB/ASA
h/o DM2, current a1c 6.1%
h/o bladder CA s/p radical cystoprostatectomy with ileal conduit and end ileostomy 12/19/2021
h/o urethral stricture with repair decades ago
KANDIS, CPAP intolerant
Obesity due to excess calories
Depression/anxiety: cont Lexapro
Tobacco abuse disorder
FULL/Lovenox
Medically cleared for discharge.
Total time spent on d/c = 31 min. This included today's physical exam, progress note, review of laboratory and diagnostic data, preparation of discharge documents and prescriptions, and discussions about the pt's hospital course and discharge plan
with the patient and other medical service representative involved in the patient's care.
--- NOTE | 2024-04-20 13:19 | W.DCSUMMARY ---
Discharge Summary
Discharge Data
Date of Admission: 04/20/24
Date of Discharge: 04/20/24
-
Pending Results: No
Hospital Course
Patient is a 53-year-old male with a PMH of alcohol use disorder who presented to the ED with signs of alcohol withdrawal including tremors, sweating, nausea/vomiting, and visual hallucinations. On arrival, he was tachycardic and tachypneic with
moderate tremors. Initial labs showed ketonuria, and metabolic acidosis with elevated anion gap, suggesting alcoholic ketoacidosis. Symptoms improved with single dose of Ativan in ED. Thiamine, folate, and fluids were started and patient was
admitted due to history of severe withdrawal in the past.
Problem list:
1. Alcohol withdrawal:
Patient was placed on MSAS protocol with lorazepam as needed and continued to receive thiamine and folate. Per patient's request, referral was sent to [facility]. Symptoms completely resolved on day 3 of admission and patient could tolerate regular
diet. He required total of 3 mg Ativan during stay. Today he is medically stable for discharge to home. Patient is willing to participate in outpatient rehab and attend AA meetings.
2. Rest of chronic conditions were treated as prior to admission.
New changes in medication include folic acid 1 mg daily and thiamine 100 twice daily.
Discharge Plan
-
Patient Disposition: Home (Routine Discharge)
Condition: Good
Diet: No restrictions, Low Fat, Low Cholesterol, Low Sodium and Diabetic, Carb Controlled
Activity: No restrictions
Driving Restrictions: As prior to admission
Bathing Restrictions: None
Activity Restrictions/Additional Instructions:
return to AA meetings
follow up with [facility] for additional programs
Instructions: Alcohol withdrawal, Alcohol use disorder - Discharge instructions
Referrals:
Leandra Eng PA-C [Family Provider] -
Prescriptions:
New
folic acid 1 mg Tablet
1 mg PO DAILY 30 Days Qty: 30 0RF
thiamine mononitrate (vit B1) 100 mg Tablet
100 mg PO BID Qty: 60 0RF
Continued
fish oil-dha-epa 1 EACH capsule
1 cap PO DAILY
aspirin [Rodrigo Low Dose Aspirin] 81 MG tablet,delayed release (DR/EC)
81 mg PO HS
cholecalciferol (vitamin D3) 1,000 UNITS tablet
1,000 units PO DAILY
glucosamine martinez 2KCl-chondroit 1 EACH tablet
2 ea PO DAILY
metoprolol succinate 25 MG tablet extended release 24 hr
25 mg PO HS
sildenafil 50 mg Tablet
50 mg PO DAILYPRN PRN (Reason: ED)
therapeutic multivitamin Tablet
1 tab PO DAILY
citalopram 20 mg Tablet
20 mg PO HS
albuterol sulfate 90 mcg/actuation Hfa Aerosol Inhaler
2 puff INHALATION R Q6HPRN PRN (Reason: sob)
Visbiome 112.5 billion cell Capsule
1 cap PO DAILY
magnesium oxide 400 mg magnesium Tablet
400 mg PO DAILY
Discharge Orders:
Discharge Patient (As Directed); Ordered 04/20/24
Ordered By: Iram Flood
Discharge Date and Time
Print Language: SETSWANA
== END 2024-04-20 14:21 | disposition home or self-care (01) | DRG 897 ==
LOC: 3 WEST ACU 08:03
PROVIDERS: Hospitalist; Student in an Organized Health Care Education/Training Program; ADMITTING PHYSICIAN Internal Medicine; ATTENDING PHYSICIAN Internal Medicine; EMERGENCY PHYSICIAN Emergency Medicine; FAMILY PHYSICIAN Physician Assistant Medical
DX: F10.239 Alcohol dependence with withdrawal, unspecified (principal); I42.8 Other cardiomyopathies; Z79.899 Other long term (current) drug therapy; Z85.51 Personal history of malignant neoplasm of bladder; Z90.79 Acquired absence of other genital organ(s); G47.33 Obstructive sleep apnea (adult) (pediatric); F32.A Depression, unspecified; F41.9 Anxiety disorder, unspecified; Z79.82 Long term (current) use of aspirin; E11.9 Type 2 diabetes mellitus without complications; F17.210 Nicotine dependence, cigarettes, uncomplicated; E66.9 Obesity, unspecified; Z68.32 Body mass index [BMI] 32.0-32.9, adult; I11.9 Hypertensive heart disease without heart failure
CPT/HCPCS: 80048; 80053; 80076; 80306; 82077; 82962; 83036; 83735; 84100; 84484; 85025; 85027; 93005; 96365; 96366; 96375; 96376; 99284; 99406

== ENCOUNTER → 2024-10-29 08:34 | Outpatient (REF) | payer OTHER, SELFPAY | LOC: RAD 08:34 | PROVIDERS: ATTENDING PHYSICIAN Urology; FAMILY PHYSICIAN Physician Assistant Medical | DX: C67.8 Malignant neoplasm of overlapping sites of bladder (principal) | CPT/HCPCS: 71260; 74178; Q9967 ==

== ENCOUNTER → 2024-11-03 07:47 | Outpatient (REF) | payer OTHER, SELFPAY | LOC: RAD 07:47 | PROVIDERS: ATTENDING PHYSICIAN Internal Medicine Gastroenterology; FAMILY PHYSICIAN Physician Assistant Medical | DX: R79.89 Other specified abnormal findings of blood chemistry (principal) | CPT/HCPCS: 76700 ==

== ENCOUNTER 2024-11-29 22:05 | Inpatient (IN) | payer OTHER, SELFPAY ==
[2024-11-29] VITALS (15 sets, daily range): BP systolic 133–159; BP diastolic 89–126; BMI 30.1
[2024-11-29] MEDS: NSS 1000 IV ×2 (15:52→22:01)
[2024-11-29 16:12] LABS: Urine Character Slightly Cloudy (Clear)
[2024-11-29 16:18] LABS: Hematocrit 40.8 % (39.0-52.0); Hemoglobin 14.8 g/dL (13.0-18.0); Mean Corp Hgb Conc. 36.3 g/dL (33.0-37.0); Mean Corpuscular Volume 87.0 fL (80.0-94.0); Nucleated Red Blood Cells % 0 % (-); Platelet Count 133 10^3/uL (130-400); Red Cell Dist. Width 12.4 % (11.5-14.5)
[2024-11-29 16:20] LABS: Urine Squamous Cell 0-2 /LPF (Few)
[2024-11-29] MEDS: ZOFRAN 4 MG IV ×2 (16:34→21:18)
[2024-11-29] MEDS: VALIUM INJECTION 5 MG IV (16:34)
[2024-11-29 16:39] LABS: COVID-19 Antigen Negative (Negative)
[2024-11-29 16:40] LABS: Troponin I < 0.012 ng/ml
--- NOTE | 2024-11-29 16:47 | ED.GENMED ---
History of Present Illness
<Ulises Hardwick Jr., PA-C - Last Filed: 11/29/24 21:38>
General
Chief Complaint: Chest Pain
Source: patient
Exam Limitations: none
Time Seen by Provider: 11/29/24 16:02
Nursing documentation reviewed up to this point in time: agreed with
History of Present Illness
History of Present Illness:
54-year-old male past medical history of diabetes, cardiomyopathy, hypertension presenting to the emergency department today with concerns of nausea vomiting diarrhea chest pain shortness of breath and headache. Had a GI virus she says 2 weeks ago
recurred 2 days ago also is a daily drinker over the past few weeks and has had to stop drinking over the past 2 days due to this and thinks he may be in some degree of withdrawal at this point as well.
Past History
<Ulises Hardwick Jr., PA-C - Last Filed: 11/29/24 21:38>
Past History
ED Past Medical History: Psychiatric (Alcohol abuse, depression)
ED Past Surgical History: Urological
Social History
Tobacco: Smoker
Alcohol: Chronic alcoholic
Review of Systems
<Ulises Hardwick Jr., PA-C - Last Filed: 11/29/24 21:38>
Review of Systems
Allergies reviewed?: Yes
All Other Systems: ROS reviewed and negative except as documented in HPI and ROS
Phy Exam
<Ulises Hardwick Jr., PA-C - Last Filed: 11/29/24 21:38>
Physical Exam
Physical Exam:
GENERAL: Alert , in no apparent distress
EYE: pupils equal and reactive
NECK: Supple, no significant adenopathy.
ENT: o/p clr, mmm.
CARDIAC: Regular rate and rhythm .
LUNGS: Clear breath sounds bilaterally, no acute respiratory distress, no wheezes/rales/rhonchi
ABDOMEN: Soft, without focal tenderness, no r/g, no cvat
NEUROLOGICAL: Alert and oriented, no focal neuro deficits
SKIN: Warm and dry, skin intact.
MUSCULOSKELETAL: No edema, well perfused.
PSYCH: Normal and appropriate interaction.
Scores
<Ulises Hardwick Jr., PA-C - Last Filed: 11/29/24 21:38>
Heart Score for Chest Pain Patients
STEMI patient?: Not applicable
Course
<Ulises Hardwick Jr., PA-C - Last Filed: 11/29/24 21:38>
Orders/Labs/Results
Orders:
Orders
11/29/24 15:43
Electrocardiogram (*1) Urgent
Reason for Study: Chest Pain
11/29/24 15:44
EKG- Treatment ONCE
11/29/24 15:51
0.9% Sodium Chloride 1000 ml [Nss] 1,000 ml IV BOLUS
11/29/24 15:54
Alcohol Urgent
COVID-19 Antigen Urgent
Source: Nasal Swab
Complete Blood Count/With Diff Urgent
Comprehensive Metabolic Panel Urgent
Lipase Urgent
Comment: ADDON
Troponin I Urgent
Influenza A+B Rapid Molecular Urgent
THU Source: Nasal Swab
Specimen Description:
11/29/24 15:57
Urinalysis Reflex To Culture Urgent
Date Specimen was Collected: 11/29/24
Time Specimen was Collected: 15:56
Comment: Urostomy
Urine Microscopic Reflex Cult Urgent
Urine Culture Urgent
THU Source: U
Specimen Description:
Date Specimen was Collected: 11/29/24
Time Specimen was Collected: 15:56
11/29/24 16:19
Ondansetron Injectable [Zofran] 4 mg IV NOW STA
diazePAM [Valium Injection] 5 mg IV NOW STA
11/29/24 18:19
diazePAM [Valium Injection] 10 mg IV NOW STA
11/29/24 19:33
Add On- LAB Urgent
Tests Added?: lipase
11/29/24 19:46
PT/INR [Prothrombin Time] Urgent
11/29/24 19:50
US Abdomen Complete/Upper Urgent
Comment:
Reason For Exam: upper abd pain
11/29/24 21:16
Ondansetron Injectable [Zofran] 4 mg .ROUTE .STK-MED ONE
11/29/24 21:17
Ondansetron Injectable [Zofran] 4 mg IV NOW STA
Abnormal Lab Results
11/29/24 11/29/24 11/29/24
15:54 15:57 19:46
RBC 4.69 L 10^6/uL
(4.70-6.10)
MCH 31.6 H pg
(27.0-31.0)
MPV 10.8 H fL
(7.4-10.4)
Absolute Neuts (auto) 8.4 H 10^3/uL
(1.4-6.5)
Neutrophils % 82.5 H %
(42.2-75.2)
Lymphocytes % 11.4 L %
(20.5-51.1)
PT 15.0 H Sec
(11.4-14.6)
Carbon Dioxide 18 L mmol/L
(22-30)
Glucose 122 H mg/dl
(70-99)
Total Bilirubin 3.5 H mg/dl
(0.2-1.3)
AST 201 H U/L
(17-59)
ALT 108 H U/L
(0-50)
Alkaline Phosphatase 163 H U/L
(38-126)
Lipase 407 H U/L
(23-300)
Urine Ketones 3+ A
(Negative)
Ur Occult Blood Reflex 3+ A
(Negative)
Leukocyte Esterase Rfl 2+ A
(Negative)
Urine RBC 7-10 A /HPF
(0-2)
Urine Bacteria (Reflex) Many A
(Negative)
Urine Albumin (Reflex) 3+ A
(Neg - Trace)
11/29/24 15:54
11/29/24 15:54
Vital Signs
Initial and Last Documented VS:
Initial Vital Signs
Pulse Resp BP
106 16 138/101
11/29/24 15:44 11/29/24 15:44 11/29/24 15:44
Last Documented Vital Signs
Temp Pulse Resp BP Pulse Ox
98.9 F 93 15 154/89 97
11/29/24 21:21 11/29/24 20:45 11/29/24 20:45 11/29/24 20:30 11/29/24 20:45
<Samm Scruggs MD - Last Filed: 11/29/24 20:02>
Orders/Labs/Results
Orders:
Orders
11/29/24 15:43
Electrocardiogram (*1) Urgent
Reason for Study: Chest Pain
11/29/24 15:44
EKG- Treatment ONCE
11/29/24 15:51
0.9% Sodium Chloride 1000 ml [Nss] 1,000 ml IV BOLUS
11/29/24 15:54
Alcohol Urgent
COVID-19 Antigen Urgent
Source: Nasal Swab
Complete Blood Count/With Diff Urgent
Comprehensive Metabolic Panel Urgent
Lipase Urgent
Comment: ADDON
Troponin I Urgent
Influenza A+B Rapid Molecular Urgent
THU Source: Nasal Swab
Specimen Description:
11/29/24 15:57
Urinalysis Reflex To Culture Urgent
Date Specimen was Collected: 11/29/24
Time Specimen was Collected: 15:56
Comment: Urostomy
Urine Microscopic Reflex Cult Urgent
Urine Culture Urgent
THU Source: U
Specimen Description:
Date Specimen was Collected: 11/29/24
Time Specimen was Collected: 15:56
11/29/24 16:19
Ondansetron Injectable [Zofran] 4 mg IV NOW STA
diazePAM [Valium Injection] 5 mg IV NOW STA
11/29/24 18:19
diazePAM [Valium Injection] 10 mg IV NOW STA
11/29/24 19:33
Add On- LAB Urgent
Tests Added?: lipase
11/29/24 19:46
PT/INR [Prothrombin Time] Urgent
11/29/24 19:50
US Abdomen Complete/Upper Urgent
Comment:
Reason For Exam: upper abd pain
11/29/24 21:16
Ondansetron Injectable [Zofran] 4 mg .ROUTE .STK-MED ONE
11/29/24 21:17
Ondansetron Injectable [Zofran] 4 mg IV NOW STA
Abnormal Lab Results
11/29/24 11/29/24 11/29/24
15:54 15:57 19:46
RBC 4.69 L 10^6/uL
(4.70-6.10)
MCH 31.6 H pg
(27.0-31.0)
MPV 10.8 H fL
(7.4-10.4)
Absolute Neuts (auto) 8.4 H 10^3/uL
(1.4-6.5)
Neutrophils % 82.5 H %
(42.2-75.2)
Lymphocytes % 11.4 L %
(20.5-51.1)
PT 15.0 H Sec
(11.4-14.6)
Carbon Dioxide 18 L mmol/L
(22-30)
Glucose 122 H mg/dl
(70-99)
Total Bilirubin 3.5 H mg/dl
(0.2-1.3)
AST 201 H U/L
(17-59)
ALT 108 H U/L
(0-50)
Alkaline Phosphatase 163 H U/L
(38-126)
Lipase 407 H U/L
(23-300)
Urine Ketones 3+ A
(Negative)
Ur Occult Blood Reflex 3+ A
(Negative)
Leukocyte Esterase Rfl 2+ A
(Negative)
Urine RBC 7-10 A /HPF
(0-2)
Urine Bacteria (Reflex) Many A
(Negative)
Urine Albumin (Reflex) 3+ A
(Neg - Trace)
11/29/24 15:54
11/29/24 15:54
Vital Signs
Initial and Last Documented VS:
Initial Vital Signs
Pulse Resp BP
106 16 138/101
11/29/24 15:44 11/29/24 15:44 11/29/24 15:44
Last Documented Vital Signs
Temp Pulse Resp BP Pulse Ox
98.9 F 93 15 154/89 97
11/29/24 21:21 11/29/24 20:45 11/29/24 20:45 11/29/24 20:30 11/29/24 20:45
<Ulises Hardwick Jr., PA-C - Last Filed: 11/29/24 21:38>
MDM/Problems Addressed
MDM/Problems Addressed:
54-year-old male presenting to the emergency department today with concerns of nausea vomiting diarrhea. Significant nausea vomiting diarrhea crampy abdominal discomfort over the past 2 days. Has not been with drink alcohol due to this. Thinks
that he may be in withdrawal as well. Concern patient does have abdominal pain ultrasound was performed that showed some potential common bile duct dilatation. Unclear how acute this is at this point. Did have similar findings in the past. Does
have vague urine function test elevation as well as bilirubin which is also unclear if this is acute or due to chronic alcohol use. Point patient with ongoing significant symptoms nausea tachycardia and tremor plan to admit for further treatment
for potential alcohol withdrawal versus acute abdominal process.
<Ulises Hardwick Jr., PA-C - Last Filed: 11/29/24 21:38>
*Pulse Oximetry
SaO2: 97
Oxygen Mode of Delivery: Room air
Patient hypoxic: no (97)
*Critical Care Note
Total Time (30-74mins, 75-104mins- exclusive of procedures): Not Applicable
ED Attending Note
<Ulises Hardwick Jr., PA-C - Last Filed: 11/29/24 21:38>
-
Portions of this chart may have been created with voice recognition software.� Occasional wrong word or��sound alike� substitutions may have occurred due to the inherent limitations of voice recognition software.
<Samm Scruggs MD - Last Filed: 11/29/24 20:02>
ED Attending Note
Patient seen and examined by attending physician: Yes
I performed the substantive portion of visit, reviewed & personally made and approve the management plan that is documented in note by myself or MAGI.: Yes
ED Attending Note:
54-year-old male presents with nausea vomiting shortness of breath chest pain weakness. Fell due to GI bug weeks ago. Had an outpatient ultrasound a month ago with ongoing GI issues that showed a dilated common bile duct. This was done through
gastroenterology. Stopped drinking 2 to 3 days ago feels different than withdrawal.
On exam patient is nontoxic although he has received significant benzodiazepines. He is in no respiratory distress. Elevated blood pressure. Heart rate high 90s. Afebrile. Abdomen is soft. No obvious right upper quadrant tenderness. Warm and
dry. Perfusing well.
Labs show significant LFT elevation. Possibly secondary to alcohol use but would have to consider a common duct issue. Will check PT/INR. Add lipase. Ultrasound. Will require admission for further care.
Discharge Plan
Departure
Patient Disposition: Admit
Date of Disposition: 11/29/24
Time of Disposition: 21:37
Admit to: Telemetry
Admit to doctor: Dionicio
Presentation/result/management discussed w/ accepting MD/DO: Hospitalist
Patient with high blood pressure during this ER visit?: No
Condition: Fair
Covid-19: Not Applicable
Discharge Problem:
Alcohol withdrawal, Common bile duct dilation
Prescriptions:
No Action
fish oil-dha-epa 1 EACH capsule
1 cap PO DAILY
aspirin [Rodrigo Low Dose Aspirin] 81 MG tablet,delayed release (DR/EC)
81 mg PO HS
cholecalciferol (vitamin D3) 1,000 UNITS tablet
1,000 units PO DAILY
glucosamine martinez 2KCl-chondroit 1 EACH tablet
2 ea PO DAILY
metoprolol succinate 25 MG tablet extended release 24 hr
25 mg PO HS
sildenafil 50 mg Tablet
50 mg PO DAILYPRN PRN (Reason: ED)
therapeutic multivitamin Tablet
1 tab PO DAILY
citalopram 20 mg Tablet
20 mg PO HS
albuterol sulfate 90 mcg/actuation Hfa Aerosol Inhaler
2 puff INHALATION R Q6HPRN PRN (Reason: sob)
Visbiome 112.5 billion cell Capsule
1 cap PO DAILY
magnesium oxide 400 mg magnesium Tablet
400 mg PO DAILY
folic acid 1 mg Tablet
1 mg PO DAILY 30 Days Qty: 30 0RF
thiamine mononitrate (vit B1) 100 mg Tablet
100 mg PO BID Qty: 60 0RF
Referrals:
NONE,* [Family Provider, Internal Medicine]
Yuriy Kim MD [Primary Care Provider, Internal Medicine]
Interventions
Interventions:
*Risk Screen - Suicide Last Done: 11/29/24 15:43
*General Assessment Last Done: 11/29/24 15:45
*Neglect/Abuse Screening Last Done: 11/29/24 15:43
*ED- Fall Risk Assessment Last Done: 11/29/24 15:48
*ED COVID-19 Vaccine History Last Done: 11/29/24 15:48
*ED Influenza Vaccine History Last Done: 11/29/24 15:48
ED- Cardiac Assessment Last Done: 11/29/24 15:49
Discharge Date and Time
Print Language: KHMER
[2024-11-29 16:51] LABS: ALT (SGPT) 108 U/L (0-50); AST (SGOT) 201 U/L (17-59); Albumin 4.7 g/dl (3.5-5.0); Alkaline Phosphatase 163 U/L (38-126); Blood Urea Nitrogen 17 mg/dl (9-20); Calcium 9.0 mg/dl (8.4-10.2); Carbon Dioxide 18 mmol/L (22-30); Chloride 105 mmol/L (98-107); Estimated Creatinine Clearance 118 ml/min; Glucose 122 mg/dl (70-99); Potassium 4.0 mmol/L (3.5-5.1); Sodium 139 mmol/L (135-145); Total Protein 7.8 g/dl (6.3-8.2); eGFR > 60.00
[2024-11-29] MEDS: VALIUM INJECTION 10 MG IV (18:40)
[2024-11-29 20:02] LABS: INR 1.14; PT 15.0 Sec (11.4-14.6)
[2024-11-29 20:11] LABS: Lipase 407 U/L (23-300)
--- NOTE | 2024-11-29 21:24 | W.PN.UPDATE ---
Update Note
Progress Note Update
This note serves as an addendum to the H&P by collateral analyst Elidia Steve
HPI
54M HX ETOH use disorder, hypertension seen at ER
- concerns of nausea vomiting diarrhea chest pain shortness of breath and headache.
- GI virus she says 2 weeks ago recurred 2 days ago
- daily drinker 02/22 Vodka
- had to stop drinking over the past 2 days due to this and thinks he may be in some degree of withdrawal at this point as well.
Relevant VS
Temp Pulse Resp BP Pulse Ox
98.9 F 93 15 154/89 97
11/29/24 21:21 11/29/24 20:45 11/29/24 20:45 11/29/24 20:30 11/29/24 20:45
PE
Gen: NAD , Fidgety , easily desirable,
HEENT: anicteric
Neck: supple
Lungs: CTA
Cor: RRR
Abdomen:�Soft, without focal tenderness,
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
Psych: , easily distractible
Relevant Data
04/20/24 11/29/24 11/29/24
05:56 15:54 19:46
WBC 10.2
Hgb 13.1 14.8
MCV 87.8 87.0
Plt Count 143 D 133
INR 1.14
Potassium 4.0
Carbon Dioxide 18 L
Creatinine 0.8
eGFR > 60.00
Total Bilirubin 3.5 H
AST 92 H 201 H
ALT 109 H 108 H
Alkaline Phosphatase 163 H
Troponin I < 0.012
Lipase 407 H
11/29/24
15:54
Alcohol, Quantitative < 10
US abdomen
1. Adherent gallstone/sludge ball vs. polyp measures up to 9 mm.
2. Common bile duct dilatation. Consider nonemergent MRI/MRCP abdomen.
3. Hepatomegaly and increased echogenicity in the liver, compatible with underlying hepatocellular disease, which most commonly relates to fatty infiltration of the liver.
Last hospitalist admission: 04/20/24 - 04/20/24 DC Dxs; . Alcohol withdrawal:
ASSESSMENT & PLAN
Pending Rx reconciliation
Acute ETOH hepatitis :Acute N/V + Abn LFTS significant for reverse AST & ALT ratio 2:1 + Hyperbilirubinemia
Elevated Lipase due to emesis
Sono evidence o Hepatomegaly and increased echogenicity in the live due to underlying hepatocellular disease.
- Clear diet and ADAT
- Trend LFTs
- IVF
- Supportive care
- GI consult
Onset of early acute ETOH WDS
At hi risk for DTs
HX DTs in the past
- Continue MSAS protocol
- start PHB protocol
- Continue thiamine and folate
Abn US for for Adherent gallstone/sludge ball vs. polyp measures up to 9 mm for CBD dilatation
- Non emergent MRCP/MRI when stable
- await GI evaluation
HX NICM
- 04/24/2023 TTE -normal LV size and function. EF 60 to 65%. No valvular disease
- on [employer] metoprolol sux
Known HX
HX Cardiac catheterization December 2017: mild global hypokinesis with a EF 46%, normal coronaries
HX Pre diabetes vs DMT2: - last A1C 6.1
HX bladder cancer status post radical cystoprostatectomy with ileal conduit and end ileostomy 12/19/2021
HX urethral stricture with repair decades ago
KANDIS Sleep apnea- Intolerance to CPAP
Class I Obesity BMI in 30
Depression/anxiety-continue Lexapro
DVT Px: SQH
Full code
IP TLM
--- NOTE | 2024-11-29 21:26 | HPS.HSE ---
Family Physician
-
Family Physician: * NONE
Chief Complaint
-
Abdominal pain x 2 days with nausea vomiting
History of Present Illness
54-year-old male complaining of abdominal pain starting 2 days ago with nausea and vomiting unable to tolerate anything by mouth. He reports he drinks approximately 1/5 of hard liquor per day he has not had any alcohol since Saturday 2 days ago
11/27/2024 he currently has tachycardia feels as though he is having withdrawal. He received IV benzodiazepine in ER. Ultrasound showing CBD dilation with transaminitis/hyperbilirubinemia.
The patient denies fever, chills, chest pain, palpitations, cough, shortness of breath, diarrhea. He reports history of diabetes was on Ozempic for the past 4 to 5 months but stopped 3 weeks ago due to feeling sick every time he took it.
He has a past medical history hypertension, CHF, nonischemic cardiomyopathy recovered EF, alcohol abuse, active smoker, DM 2, anxiety bladder cancer status post BCG, urostomy, BPH status post prostatectomy sleep apnea osteoarthritis
Medical History
Past Medical History
Past Medical History: Reports Other
Additional Past Medical History:
Hypertension
CHF
Nonischemic cardiomyopathy recovered EF
Alcohol abuse with history of DTs
Active smoker
DM 2
Anxiety
Bladder cancer status post BCG/ Urostomy
BPH status post prostatectomy
Sleep apnea
Osteoarthritis
Past Surgical History: Reports Other
Additional Past Surgical History:
Bladder cancer with active urostomy
BPH status post prostate removal
Status post TURBT x 2
Social History
Tobacco: Smoker (1/4 pack a day x 1 year prior 2 pack a day 20 years)
Alcohol: Daily (1/5 whiskey daily last drink 11/27/2024)
Employment: Employed
Family History
Family History: Adopted
Allergies / Home Medications
Allergies reflects when Allergies were last updated in apprupt.
Home Medications with original date entered in apprupt
Allergy/Medication List:
Allergies
Allergy/AdvReac Type Severity Reaction Status Date / Time
bee venom protein (honey bee) Allergy Swelling Verified 11/29/24 15:43
Home Medications
aspirin 81 mg tablet,delayed release (Rodrigo Low Dose Aspirin) 81 mg PO HS Blood clot prevention/tx 02/16/21
metoprolol succinate 25 mg tablet,extended release 24 hr 25 mg PO HS Blood pressure 08/16/21
citalopram 20 mg tablet 40 mg PO HS depression/anxiety 04/17/24
Review of Systems
-
History Source: Patient
A 12 point ROS was completed and negative except as noted: Yes
Constitutional: Denies Fever or Chills
EENT: Denies Sore Throat or Runny Nose
Respiratory: Denies Cough or Trouble Breathing
Cardiac: Denies Chest Pain, Diaphoresis or Palpitations
Abdomen/GI: Reports Abdominal Pain (Left upper quadrant pain), Nausea and Vomiting; Denies Diarrhea, Constipated or Bloody Stools
: Denies Dysuria, Frequency, Flank Pain, Incontinence or Difficulty Voiding
Musculoskeletal: Denies Joint Pain or Edema
Skin: Denies Itching or Rash
Neurological: Reports Other (Hand tremors); Denies Dizzy or Headache
Endocrine: Reports No Symptoms
Hematologic/Lymphatic: Reports No Symptoms
Psych: Reports Calm
Physical Exam
Vital Signs
Vital Signs
Temp Pulse Resp BP Pulse Ox
98.9 F 93 15 154/89 97
11/29/24 21:21 11/29/24 20:45 11/29/24 20:45 11/29/24 20:30 11/29/24 20:45
Physical Exam
General: Conversant and Pain; No Fever or Chills
HEENT: NormoCephalic, Anicteric, Moist mucous membranes, PERRLA, [place] Conjunctivae and No Ptosis
Respiratory: Clear; No Wheezes, Rales or Rhonchi
Cardiac: S1/S2 and Tachycardia; No Murmur, Rub, Gallop or Peripheral Edema
Breast: Deferred by me
GI: Soft, Non Tender, Non Distended and Normal Bowel Sounds
Rectal: Deferred by Provider
Genito-urinary: Deferred by me
Musculoskeletal: No Clubbing, No Cyanosis and No Edema
Neuro: AO x 3, Nonfocal/grossly intact, Cranial Nerves Intact, No Sensory Deficits and Tremors (Alcohol withdrawal); No Slurred Speech, Facial Droop or Sedated
Psych: Anxious
Laboratory Results
-
11/29/24 15:54
11/29/24 15:54
Laboratory Results
PT 15.0 Sec (11.4-14.6) H 11/29/24 19:46
INR 1.14 11/29/24 19:46
Total Bilirubin 3.5 mg/dl (0.2-1.3) H 11/29/24 15:54
AST 201 U/L (17-59) H 11/29/24 15:54
ALT 108 U/L (0-50) H 11/29/24 15:54
Alkaline Phosphatase 163 U/L (38-126) H 11/29/24 15:54
Troponin I < 0.012 ng/ml 11/29/24 15:54
Lipase 407 U/L (23-300) H 11/29/24 15:54
Impression/Plan
-
Impression/plan:
Admit to IMU
#Acute alcoholic hepatitis
#Abdominal pain with CBD dilation concern for possible choledocholithiasis
CBD duct 8.7 mm adherent gallstone/sludge
Patient recently on Ozempic x 4 months stopped 3 weeks ago due to abdominal pain every time he took medication
- N.p.o.
- MRCP/MRI abdomen, IV Valium on-call to MRI due to claustrophobia
- IV NSS
- IV Zofran
- IV Dilaudid
- Consult GI
- IV PPI
- Follow CMP, CBC
Abdominal ultrasound:1. Adherent gallstone/sludge ball versus polyp measures up to 9 mm.
2. Common bile duct dilatation. Consider nonemergent MRI/MRCP abdomen.
3. Hepatomegaly and increased echogenicity in the liver, compatible with underlying hepatocellular disease, which most commonly relates to fatty infiltration of the liver.
#Alcohol withdrawal/alcohol abuse
#History of DTs in the past
Alcohol level less than 1
Daily drinker 1/5 a day hard liquor no alcohol past 2 days since 11/27/2024
-Alcohol withdrawal protocol
-IV thiamine folate
- Phenobarb taper
#DM 2
Check HgbA1c
-Patient recently on Ozempic x 4 months stopped 3 weeks ago due to abdominal pain every time he took medication
#HTN�benign
BP 154/89
-Hold p.o. metoprolol, aspirin
#Anxiety
- Hold Celexa
#CHF nonischemic cardiomyopathy recovered EF
#Cardiomegaly
2D echo 04/24/2023 Normal left ventricular size and systolic function.
LV ejection fraction is 60-65%.
No significant valvular disease.
#Sleep apnea
#Active smoker
#Bladder cancer with active urostomy
#BPH status post prostate removal
#BCG x 6 weeks May 2021
#Status post TURBT x 2, bladder and prostate removal
#Osteoarthritis
DVT prophylaxis
Subcu heparin
Full code
[2024-11-29] MEDS: PROTONIX IV 40 MG IV (22:03)
[2024-11-29] MEDS: PHENOBARBITAL 104 MG IV (22:21)
[2024-11-30] VITALS (12 sets, daily range): BP systolic 110–152; BP diastolic 74–106; BMI 29.9
[2024-11-30] MEDS: THIAMINE INJECTION 200 MG IV ×3 (00:30→15:06)
[2024-11-30] MEDS: ATIVAN 1 MG PO (00:35)
--- NOTE | 2024-11-30 05:45 | PTCARENOTE ---
Rec'd pt from ED RN. Pt pleasant, cooperative. NSR on CM with tachycardia to 130s on ambulation. Maintained on RA. C/o mild nausea. PO ativan given for MSAS 6. Pt resting comfortably in bed following dose. Following MSAS scores <4. C/o mild
abdominal pain. IVF in place. Call kenyon within reach. Care ongoing.
[2024-11-30 06:10] LABS: GGTP 1006 U/L (15-73); Magnesium 1.8 mg/dl (1.6-2.3)
[2024-11-30] MEDS: NSS 1000 IV (07:26)
[2024-11-30] MEDS: HEPARIN 5000 UNITS SC ×2 (07:27→20:58)
[2024-11-30] MEDS: FOLVITE 1 MG PO (07:27)
[2024-11-30] MEDS: PROTONIX IV 40 MG IV (07:27)
[2024-11-30] MEDS: NSS (PRESERVATIVE FREE) 10 ML IV (07:27)
[2024-11-30] MEDS: PHENOBARBITAL 97.5 MG IV ×3 (07:28→20:57)
[2024-11-30] MEDS: ZOFRAN 4 MG IV ×2 (07:50→18:26)
--- NOTE | 2024-11-30 08:02 | W.PN.HOSP.TC ---
Today's Communication/Plan
-
Continue alcohol withdrawal protocol
IV fluids
Antiemetics
Clear liquid diet
MRCP
GI consult
Assessment / Plan
Assessment / Plan
Gen-AAOx3, NAD
HEENT-NC, AT, anicteric, clear oral mm
Neck-supple
CV-reg, no M, +S1/S2
Lungs-clear B/L
Abd-soft, NT, ND
Ext-no edema
Musculoskeletal-no cyanosis, clubbing
Skin-warm and dry
Neuro-grossly non-focal
Psych-calm, cooperative
Alcoholic ketoacidosis -presentation with vomiting in the setting of heavy alcohol use. Last drink was Saturday.
Initial blood work showed elevated anion gap, 16. Beta hydroxybutyrate 0.42. Urine ketones positive.
Repeat labs pending for today.
Continue supportive care with IV fluids, antiemetics. Repeat labs pending.
Mild lipase elevation noted. Clinically doubt acute pancreatitis.
Clear liquid diet ordered.
Alcohol induced hepatitis -AST/ALT ratio of 2, elevated bilirubin and alkaline phosphatase. Repeat labs pending.
Abdominal ultrasound notes adherent gallstones/sludge ball versus polyp, measuring 9 mm. CBD dilation. Hepatomegaly and increased echogenicity in the liver compatible with underlying hepatocellular disease, likely fatty liver.
MRCP pending.
GI consulted.
Severe alcohol use disorder -patient interested in quitting. He states that he was in AA before. Wants to call his sponsor on discharge. Offered him social work assistance but he declined.
Alcohol withdrawal syndrome -continue benzodiazepines, phenobarbital. Thiamine, folic acid.
Tobacco dependence
Nonischemic cardiomyopathy -known to Dr. Salazar.
History of bladder cancer -s/p radical cystoprostatectomy with ileal conduit and end ileostomy, 12/19/2021.
History of urethral stricture
KANDIS -CPAP intolerant.
Depression/anxiety disorder
Impaired fasting glucose -last hemoglobin A1c 6.1%, 04/18/2024.
Obesity due to excess calories
Full code
Anticipated Discharge: > 48 hours
Subjective/Interval History
-
Date of Service: November 30, 2024
Patient seen and examined. Complaining of nausea this morning, denies abdominal pain.
Objective Data
-
Labs:
Laboratory Results
11/29/24 11/30/24
19:46 07:16
PT 15.0 H
INR 1.14
Sodium Pending
Potassium Pending
Chloride Pending
Carbon Dioxide Pending
BUN Pending
Creatinine Pending
Glucose Pending
Calcium Pending
Total Bilirubin Pending
AST Pending
ALT Pending
Alkaline Phosphatase Pending
Vital Signs:
Vital Signs
Temp Pulse Resp BP Pulse Ox
98.0 F 69 14 131/80 97
11/30/24 03:00 11/30/24 06:00 11/30/24 06:00 11/30/24 06:00 11/30/24 06:00
I&O
11/29/24 11/30/24 12/01/24
06:59 06:59 06:59
Intake Total 600 / 600
Output Total 700 / 700
Balance -100 / -100
Review of Systems
-
History Source: Patient
All other systems: Reviewed and negative
[2024-11-30 09:08] LABS: ALT (SGPT) 110 U/L (0-50); AST (SGOT) 194 U/L (17-59); Albumin 4.0 g/dl (3.5-5.0); Alkaline Phosphatase 130 U/L (38-126); Blood Urea Nitrogen 16 mg/dl (9-20); Calcium 8.6 mg/dl (8.4-10.2); Carbon Dioxide 24 mmol/L (22-30); Chloride 108 mmol/L (98-107); Estimated Creatinine Clearance 118 ml/min; Glucose 90 mg/dl (70-99); Potassium 3.9 mmol/L (3.5-5.1); Sodium 139 mmol/L (135-145); Total Protein 6.6 g/dl (6.3-8.2); eGFR > 60.00
[2024-11-30] MEDS: LR 1000 IV ×2 (09:17→22:10)
--- NOTE | 2024-11-30 09:22 | PTCARENOTE ---
Patient is a self when emptying urine from urostomy. Large amount of yellow urine with odor emptied into toilet by patient.
--- NOTE | 2024-11-30 09:23 | CON.GI ---
Addendum entered and electronically signed by Maria E Walker MD 11/30/24 14:52:
I saw and examined the patient.
The medical records coder's note was reviewed and I agree with the note.
-- Abdominal pain/nausea/vomiting/heavy alcohol use -noted to be in alcoholic ketoacidosis
-- Elevated LFT. Mixed pattern. Labs 11/30/2024. AST 194/ALT 110/alkaline phosphatase 130/total bilirubin 2.9/direct bilirubin 0.9. Ultrasound abdomen showing CBD 9 mm. Hepatomegaly with increased echogenicity. Adherent gallstone/sludge ball
versus polyp measures up to 9 mm. Suggestive of fatty liver.
--Elevated lipase
--History of bladder cancer -s/p radical cystoprostatectomy with ileal conduit and end ileostomy, 12/2021.
-- Nonischemic cardiomyopathy
--KANDIS
-- hx of colon polyps 01/2020 - due for repeat colon this year
plan
Follow-up MRI /MRCP
Trend LFT. DF < 32 -no indication for steroids at this point
Alcohol withdrawal protocol as per medical team
IVF
Antiemetics as needed
Will keep on clear liquid diet. If no evidence of pancreatitis or CBD obstruction in MRI/MRCP okay to advance diet as tolerated
Original Note:
Consultation
-
Date/Time Consultation Requested: 11/30/2024 00:16
Date/Time Consultation Performed: 11/30/2024 09:30
Requesting Provider: Priscilla Steve
Performing Provider: Maria E Walker MD; Nahum Pyle MD
Reason for Consultation: EtOH hepatitis; CBD dilation
Medical History
Chief Complaint / HPI
Chief Complaint: abdominal pain
History of Present Illness:
54 yo M PMH HTN, EtOH abuse with prior delirium tremens, anxiety, bladder cancer s/p BCG/urostomy, prostate cancer s/p prostatectomy, nonischemic cardiomyopathy
He is presenting with abdominal pain, nausea/vomiting of 2 days duration in the setting of EtOH use (1/5 whiskey daily).
Abdominal pain is upper epigastric, nonradiating. He also endorses reflux symptoms. He denies any alleviating or aggravating factors. He reports poor appetite, endorses nausea/vomiting of yellow/green consistency but denies hematemesis.
He drinks 1/5 whiskey daily, last drink Saturday11/28/2024).
He last had a bowel movement a few days ago, denies any significant PO intake.
He does report visual and auditory hallucinations (to me). This constellation of symptoms has occurred ~ 8 monts ago, when he experienced alcohol withdrawal.
He also reports that he was told he had an issue with his gallbladder ~ 1 month ago and that was the first time he's heard about it. He denies any yellowing of skin.
He reports that he was adopted and does not know his biological family hx.
Past Medical History
Past Medical History: Other (per HPI)
Past Surgical History: Other (Bladder cancer with active urostomy; BPH status post prostate removal; Status post TURBT x 2)
Social History
Tobacco: Smoker
Alcohol: Daily (1/5 whiskey)
Family History
Family History: Adopted
Allergies / Home Medications
Allergy/AdvReac Type Severity Reaction Status Date / Time
bee venom protein (honey bee) Allergy Swelling Verified 11/29/24 15:43
�Medication �Instructions �Recorded
aspirin 81 mg tablet,delayed 81 mg PO HS Blood clot 02/16/21
release (Rodrigo Low Dose Aspirin) prevention/tx
metoprolol succinate 25 mg 25 mg PO HS Blood pressure 08/16/21
tablet,extended release 24 hr
citalopram 20 mg tablet 40 mg PO HS depression/anxiety 04/17/24
Review of Systems
-
History Source: Patient
Constitutional: Reports No Symptoms
EENT: Reports No Symptoms
Respiratory: Reports No Symptoms
Cardiac: Reports No Symptoms
Abdomen/GI: Reports Abdominal Pain, Nausea and Vomiting
: Reports Other (urostomy)
Musculoskeletal: Reports No Symptoms
Skin: Reports No Symptoms
Neurological: Reports Other (auditory and visual hallucinations; no tremors)
Endocrine: Reports No Symptoms
Hematologic/Lymphatic: Reports No Symptoms
Vital Signs
Temp Pulse Resp BP Pulse Ox
98.2 F 74 14 131/80 97
11/30/24 07:05 11/30/24 08:00 11/30/24 08:00 11/30/24 06:00 11/30/24 06:00
Physical Exam
Exam
General: Comfortable
HEENT: Normocephalic and Anicteric
Respiratory: Clear
Cardiac: Other (no murmurs on my exam)
GI: Soft and Tender (tenderness to palpation epigastric, RUQ, and LUQ)
Rectal: Deferred by Provider
Genito-urinary: Other (urostomy band present)
Musculoskeletal: No Edema
Skin: Warm
Neuro: AO x 3, No Motor Deficits and Other (no asterixis; reports auditory and visual hallucinations)
Psych: Calm
Results
WBC 10.2 10^3/uL (4.8-10.8) 11/29/24 15:54
Hgb 14.8 g/dL (13.0-18.0) 11/29/24 15:54
Hct 40.8 % (39.0-52.0) 11/29/24 15:54
MCV 87.0 fL (80.0-94.0) 11/29/24 15:54
Plt Count 133 10^3/uL (130-400) 11/29/24 15:54
Absolute Neuts (auto) 8.4 10^3/uL (1.4-6.5) H 11/29/24 15:54
PT 15.0 Sec (11.4-14.6) H 11/29/24 19:46
INR 1.14 11/29/24 19:46
Sodium 139 mmol/L (135-145) 11/30/24 08:21
Potassium 3.9 mmol/L (3.5-5.1) 11/30/24 08:21
Chloride 108 mmol/L (98-107) H 11/30/24 08:21
Carbon Dioxide 24 mmol/L (22-30) 11/30/24 08:21
BUN 16 mg/dl (9-20) 11/30/24 08:21
Creatinine 0.8 mg/dL (0.7-1.3) 11/30/24 08:21
Calcium 8.6 mg/dl (8.4-10.2) 11/30/24 08:21
Total Bilirubin 2.9 mg/dl (0.2-1.3) H 11/30/24 08:21
AST 194 U/L (17-59) H 11/30/24 08:21
ALT 110 U/L (0-50) H 11/30/24 08:21
Alkaline Phosphatase 130 U/L (38-126) H 11/30/24 08:21
Lipase 407 U/L (23-300) H 11/29/24 15:54
GGT 1006
BHB 0.42
Diagnostic Image Results:
Abdominal US: 11/29/2024
IMPRESSION:
1. Adherent gallstone/sludge ball versus polyp measures up to 9 mm.
2. Common bile duct dilatation. Consider nonemergent MRI/MRCP abdomen.
3. Hepatomegaly and increased echogenicity in the liver, compatible with underlying hepatocellular disease, which most commonly relates to fatty infiltration of the liver.
Prior GI Procedures:
Colonoscopy:
02/08/2020
Impression: - One 3 mm polyp in the distal descending colon,
removed with a cold biopsy forceps. Resected and
retrieved.
- One 6 mm polyp in the mid sigmoid colon, removed
with a hot snare. Resected and retrieved.
- The examination was otherwise normal.
EKG: QTc 459 ms from 11/29/2024
Assessment / Plan
-
54 yo M PMH HTN, EtOH abuse with prior delirium tremens, anxiety, bladder cancer s/p BCG/urostomy, prostate cancer s/p prostatectomy, nonischemic cardiomyopathy presenting with abdominal pain, nausea, vomiting and found to have dilated common bile
duct currently most concerning for EtOH hepatitis.
# EtOH hepatitis
# EtOH withdrawal
- VSS, afebrile
- physical exam: no juandice, anicteric, no asterixis
- Labs: AST 194, ALT 110; GGT 1006; AlkPhos 130; Lipase 407
- AST to ALT ratio of approximately 2:1 is c/w EtOH liver disease
- lipase does not >3x ULN although reports abdominal pain in RUQ, epigastric, LUQ, possibly pointing away from pancreatitis
- Maddrey's Discriminant Function: 5.3 (PT 15.0; total bili 3.5 initial labs) suggests good prognosis, and additional pharmacotherapy (e.g. glucocorticoids) is likely not needed.
- MELD score 13 (INR 1.14; tbili 3.5; cr 0.8)
- He does report auditory and visual hallucinations to me, monitor symptoms for delirium tremens
Plan:
- Continue IV pantoprazole
- Continue IV ondansetron
- Continue thiamine
- Monitor VS and electrolytes
- Continue clear liquid diet for today
- Consider completing an infectious workup for completeness: CXR and blood cultures; urine culture pending
- Recommendations are not final until discussed with Dr. Walker, GI attg
# Common bile duct dilation
- US noted dilated common bile duct.
- RUQ discomfort but negative hassan's sign on my exam
- No jaundice or scleral icterus on my exam
- R factor of 3.8 suggests mixed cholestatic and hepatocellular; which is reasonable given concern for EtOH hepatitis and prior imaging reports of fatty liver
- etiology for CBD dilation could be obstructive (but no evidence of obstruction found); chronic pancreatitis (longstanding EtOH use can point towards this); infections (cholangitis seems unlikely given absence of clear RUQ pain, jaundice, and/or
fever); or idiopathic.
- further imaging (MRCP ordered) may help identify cause
Plan:
- f/u MRCP
- Recommendations are not final until discussed with Dr. Walker, GI attg
-
-
Thank you for consultation and allowing me to participate in the patient's care. Please call the [facility] GI physician during the after hours with any questions or concerns.
--- NOTE | 2024-11-30 09:30 | PTCARENOTE ---
Cancelled UDS order. Duplicate order.
--- NOTE | 2024-11-30 11:57 | CM ---
Initial Assessment Completed By GARTH Cerna.
Patient is independent of all ADL's, lives with his parents in a 2 Story House, 1 step to enter, and full flight inside. 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 No DME, No V/N/PT, and No Rehab.
PCP: Dr. Leandra Peters
Pharmacy: [facility] [address] in [place]
Patient has transportation home. GARTH Cerna discussed alcohol resources, but patient declined any additional resources and said he will go back to AA on his own.
PLAN: Anticipate Home No Need
--- NOTE | 2024-11-30 17:12 | PTCARENOTE ---
Patient AOx3. MSAS completed per order. See 'worklist' for documentation. On RA with SpO2 greater than 92%. NSR. Tachy during ambulation with HR in the 120-130's. C/o slight dizziness during ambulation. BP stable. Standby assist when OOB. Urostomy
with yellow urine. Patient emptied urostomy several times throughout shift. Loose/soft BM's. Tolerating clear liquid diet. IVF running per order. Call kenyon within reach, bed in lowest position, and bed of wheels locked.
[2024-11-30] MEDS: IMODIUM 2 MG PO (18:26)
[2024-11-30] MEDS: VALIUM INJECTION 5 MG IV (20:56)
[2024-12-01] VITALS (8 sets, daily range): BP systolic 110–140; BP diastolic 77–99
[2024-12-01] MEDS: THIAMINE INJECTION 200 MG IV ×4 (01:07→23:39)
--- NOTE | 2024-12-01 06:11 | W.PN.UPDATE ---
Update Note
Progress Note Update
Discussed with patient about 'source patient testing' due to needle stick injury and he consents.
[2024-12-01 06:18] LABS: ALT (SGPT) 87 U/L (0-50); AST (SGOT) 97 U/L (17-59); Albumin 3.5 g/dl (3.5-5.0); Alkaline Phosphatase 114 U/L (38-126); Blood Urea Nitrogen 8 mg/dl (9-20); Calcium 8.4 mg/dl (8.4-10.2); Carbon Dioxide 28 mmol/L (22-30); Chloride 108 mmol/L (98-107); Estimated Creatinine Clearance 118 ml/min; Glucose 90 mg/dl (70-99); Potassium 3.5 mmol/L (3.5-5.1); Sodium 139 mmol/L (135-145); Total Protein 6.1 g/dl (6.3-8.2); eGFR > 60.00
[2024-12-01] MEDS: PHENOBARBITAL 97.5 MG IV ×3 (08:36→21:21)
[2024-12-01] MEDS: PROTONIX IV 40 MG IV (08:38)
[2024-12-01] MEDS: NSS (PRESERVATIVE FREE) 10 ML IV (08:38)
[2024-12-01] MEDS: FOLVITE 1 MG PO (08:39)
[2024-12-01] MEDS: KCL 40 MEQ PO (08:39)
[2024-12-01] MEDS: HEPARIN 5000 UNITS SC ×2 (08:48→21:00)
--- NOTE | 2024-12-01 09:02 | W.PN.HOSP.TC ---
Today's Communication/Plan
-
Continue alcohol withdrawal protocol
Advance diet to solids
Assessment / Plan
Assessment / Plan
Gen-AAOx3, NAD
HEENT-NC, AT, anicteric, clear oral mm
Neck-supple
CV-reg, no M, +S1/S2
Lungs-clear B/L
Abd-soft, NT, ND
Ext-no edema
Musculoskeletal-no cyanosis, clubbing
Skin-warm and dry
Neuro-grossly non-focal
Psych-calm, cooperative
Alcoholic ketoacidosis -presentation with vomiting in the setting of heavy alcohol use. Last drink was Saturday.
Initial blood work showed elevated anion gap, 16. Beta hydroxybutyrate 0.42. Urine ketones positive.
Ketosis, acidosis resolved.
Advance diet to regular.
Alcohol induced hepatitis -improving, LFTs trending down. No indication for steroids.
Abdominal ultrasound notes adherent gallstones/sludge ball versus polyp, measuring 9 mm. CBD dilation. Hepatomegaly and increased echogenicity in the liver compatible with underlying hepatocellular disease, likely fatty liver.
MRI completed, shows severe diffuse hepatic steatosis, mild hepatomegaly, mild gallbladder distention and gallbladder adenomyomatosis. No evidence of cholelithiasis, gallbladder wall thickening, pericholecystic inflammation. No
choledocholithiasis. Pancreas appears normal. Pancreatic duct is mildly distended, 4.5 mm in the head of the pancreas.
Will defer to GI to decide on outpatient consideration of cholecystectomy given gallbladder adenomyomatosis.
Severe alcohol use disorder -patient interested in quitting. He states that he was in AA before. Wants to call his sponsor on discharge. Offered him social work assistance but he declined.
Alcohol withdrawal syndrome -continue benzodiazepines, phenobarbital. Thiamine, folic acid. No significant tremor on exam today.
Tobacco dependence -abstinence recommended.
Nonischemic cardiomyopathy -known to Dr. Salazar.
History of bladder cancer -s/p radical cystoprostatectomy with ileal conduit and end ileostomy, 12/19/2021.
History of urethral stricture
KANDIS -CPAP intolerant.
Depression/anxiety disorder
Impaired fasting glucose -last hemoglobin A1c 6.1%, 04/18/2024.
Obesity due to excess calories -weight loss encouraged.
Full code
Transfer to [facility].
Anticipated Discharge: Within 24 hours
Subjective/Interval History
-
Date of Service: December 01, 2024
Patient seen and examined. No complaints.
Objective Data
-
Labs:
Laboratory Results
12/01/24
05:41
Sodium 139
Potassium 3.5
Chloride 108 H
Carbon Dioxide 28
BUN 8 L
Creatinine 0.8
Glucose 90
Calcium 8.4
Total Bilirubin 1.7 H D
AST 97 H
ALT 87 H
Alkaline Phosphatase 114
Vital Signs:
Vital Signs
Temp Pulse Resp BP Pulse Ox
97.8 F 88 16 110/77 97
12/01/24 02:59 12/01/24 04:00 12/01/24 04:00 12/01/24 04:00 12/01/24 02:36
I&O
11/30/24 12/01/24 12/02/24
06:59 06:59 06:59
Intake Total 600 / 600 3600 / 3600
Output Total 700 / 700
Balance -100 / -100 3600 / 3600
Review of Systems
-
History Source: Patient
All other systems: Reviewed and negative
[2024-12-01 09:08] LABS: Magnesium 1.8 mg/dl (1.6-2.3)
--- NOTE | 2024-12-01 10:34 | W.PN.GI.CBS2 ---
Addendum entered and electronically signed by Diana Moon MD 12/01/24 20:37:
I saw and examined the patient.
The resident's note was reviewed and I agree with the note.
Comment: Patient currently denies any complaints. No abdominal pain or nausea or vomiting.
Passing flatus and having bowel movement, tolerating low-fat diet.
Bilirubin trending down and AST and ALT trending down as well.
MRI of the abdomen showing severe diffuse hepatic steatosis with mild hepatomegaly, evidence of right anterior abdominal wall diverting urostomy, tiny cystic changes in the superior wall of the gallbladder in the fundus suggesting gallbladder
adenomyomatosis.
- Alcoholic hepatitis that seems to be resolving
Strongly reinforced alcohol abstinence
Patient has seen me as an outpatient and was supposed to get blood work for underlying fatty liver which she has not done yet. I suggested that he should get the blood work done prior to his appointment in early December with me in the office.
Continue to monitor LFTs
- Gallbladder adenomyomatosis, denies any right upper quadrant abdominal pain. No urgent indication for surgical evaluation but will monitor with ultrasound again.
Original Note:
Today's Communication / Plan
-
Plan:
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
- Advance diet as tolerated
- Continue supportive care with IV pantoprazole, ondansetron, thiamine
- MRCP showed hepatic steatosis; no choledocholithiasis.
- Gallbladder adenomyomatosis can be monitored for symptoms; per uptodate, no cholecystectomy or imaging surveillance required
- Recommendations are not final until discussed with Dr. Moon, GI attg
Assessment / Plan
-
54 yo M PMH HTN, EtOH abuse with prior delirium tremens, anxiety, bladder cancer s/p BCG/urostomy, prostate cancer s/p prostatectomy, nonischemic cardiomyopathy presenting with abdominal pain, nausea, vomiting and found to have dilated common bile
duct currently most concerning for EtOH hepatitis.
# EtOH hepatitis
# EtOH withdrawal
- VSS, afebrile
- Abdominal pain improved from yesterday
- LFTs trending down (AST 97; ALT 87)
- MCRP noted severe diffuse hepatic steatosis, mild hepatomegaly
- Maddrey's Discriminant Function: 5.3 (PT 15.0; total bili 3.5 from initial labs) suggests good prognosis - glucocorticoids not needed
- MELD score 13 (INR 1.14; tbili 3.5; cr 0.8 from initial labs
- Today, denies auditory and visual hallucinations to me
Plan:
- Continue IV pantoprazole
- Continue IV ondansetron
- Continue thiamine
- Monitor VS and electrolytes
- Advance diet as tolerated
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
- Recommendations are not final until discussed with Dr. Moon, GI attg
# Gallbladder adenomyomatosis
- MRI noted gallbladder adenomyomatosis
- Per uptodate, if not symptomatic does not require cholecystectomy or imaging surveillance.
- However, follow-up with outpatient GI in order to monitor clinically
- Recommendations are not final until discussed with Dr. Moon, GI attg
# Common bile duct dilation
- MRCP noted no choledocholithiasis; CBD < 6 mm in diameter
Alkphos normalized (114); Tbili 1.7 (down from 2.9)
Plan:
- Advance diet as tolerated
- Recommendations are not final until discussed with Dr. Moon, GI attg
Subjective
Subjective
Date of Service: December 01, 2024
This morning feels well, reports that abdominal pain near epigastric/RUQ that is improved. He tolerated clear liquid breakfast well and advanced to regular diet for next meal.
MRCP done yesterday
Denies auditory or visual hallucinations today
Objective
Data Reviewed
Laboratory Data:
Laboratory Results
11/29/24 15:54
12/01/24 05:41
Laboratory Results
PT 15.0 Sec (11.4-14.6) H 11/29/24 19:46
INR 1.14 11/29/24 19:46
Phosphorus 3.8 mg/dl (2.5-4.5) 11/30/24 05:41
Magnesium 1.8 mg/dl (1.6-2.3) 12/01/24 05:41
Total Bilirubin 1.7 mg/dl (0.2-1.3) H D 12/01/24 05:41
AST 97 U/L (17-59) H 12/01/24 05:41
ALT 87 U/L (0-50) H 12/01/24 05:41
Alkaline Phosphatase 114 U/L (38-126) 12/01/24 05:41
Lipase 407 U/L (23-300) H 11/29/24 15:54
Vital Signs and I&O:
Vital Signs
Temp Pulse Resp BP Pulse Ox
97.8 F 77 16 132/90 97
12/01/24 02:59 12/01/24 08:15 12/01/24 08:15 12/01/24 08:15 12/01/24 02:36
I&O
11/30/24 12/01/24 12/02/24
06:59 06:59 06:59
Intake Total 600 / 600 3600 / 3600
Output Total 700 / 700
Balance -100 / -100 3600 / 3600
Physical Exam
Physical Exam
HEENT: Anicteric
Cardiology: Other (no murmurs on my exam)
Pulmonary: Clear
GI: Soft, Non Distended, Tender (some tenderness in epigastric, RUQ) and Normal Bowel Sounds
Extremities: No Edema
Neuro: Non Focal
11/30/2024:
PROCEDURE: MR Abdomen Without Contrast
CLINICAL INDICATION: Abdominal pain. Nausea. Vomiting. Common bile duct dilation. Acute alcoholic hepatitis. Urinary bladder carcinoma. Urostomy.
TECHNIQUE: An MRI examination of the abdomen was performed without intravenous contrast on a 1.5 Laly magnet. Coronal T2 thin section, axial T2 fat-suppressed, axial T2, axial T2 thin section, axial T1 gradient echo in and out of phase, coronal T2
thin section fat-suppressed, and 3-D maximum intensity projection (MIP) imaging sequences were obtained.
COMPARISON: Comparison is made with an ultrasound examination of the abdomen performed 11/29/[address] urogram examination performed 10/29/2024.
FINDINGS:
LIVER: The liver is mildly enlarged with the right lobe measuring 20.9 cm in length. There is severe diffusely decreased T1 signal intensity throughout the liver on the T1 gradient echo out of phase imaging sequence compared with the T1 gradient
echo in phase imaging sequence consistent with severe diffuse hepatic steatosis. There are no focal hepatic lesions identified.
GALLBLADDER: The gallbladder is mildly distended. There are tiny cystic changes in the superior wall of the gallbladder and in the gallbladder fundus suggesting gallbladder adenomyomatosis. There is no evidence for cholelithiasis, gallbladder wall
thickening, or pericholecystic inflammation.
BILE DUCTS: There is mild intrahepatic biliary dilatation and mild dilatation of the common hepatic duct. There is no MRI evidence for abnormal distention of the common bile duct which measures less than 6 mm in diameter. There is no evidence for
choledocholithiasis.
PANCREAS: The pancreatic duct is mildly distended measuring 4.5 mm in diameter in the head of the pancreas. There is no evidence for pancreatic or peripancreatic edema to suggest acute pancreatitis.
ADRENAL GLANDS: The adrenal glands are normal in size without evidence for mass.
KIDNEYS: The kidneys are normal in size without evidence for hydronephrosis. There is a mild amount of perinephric fat stranding and a small amount of nonloculated fluid around the kidneys.
ABDOMINAL AORTA: There is no abdominal aortic aneurysm. There is no retroperitoneal lymphadenopathy.
SPLEEN: The spleen is normal in size. There is no mesenteric lymphadenopathy.
GASTROINTESTINAL TRACT: There is no MRI evidence for abnormal distention or wall thickening in the stomach, duodenum, jejunum, or ileum. The appendix appears normal. There is a right anterior abdominal wall diverting urostomy. There is no abnormal
colonic distention or abnormal colonic wall thickening. There is no ascites. There is a small fat-containing umbilical hernia.
CHEST: The heart is normal in size. There is no pericardial or pleural effusion.
SKELETON: There is a mild right convex curvature of the upper lumbar spine. There is moderate multilevel discogenic degenerative disease throughout the thoracic and upper lumbar spine. There is severe discogenic degenerative disease at L5/S1. There
is mild diffuse posterior paraspinal muscle atrophy.
IMPRESSION:
1. SEVERE DIFFUSE HEPATIC STEATOSIS.
2. Mild hepatomegaly.
3. Right anterior abdominal wall diverting urostomy.
[2024-12-01] MEDS: IMODIUM 2 MG PO (15:27)
[2024-12-01 16:13] LABS: Hepatitis B Surface Antigen Negative (Negative)
[2024-12-01 16:55] LABS: Hepatitis C Antibody Negative (Negative)
[2024-12-01] MEDS: ASPIR LOW (ENTERIC COATED) 81 MG PO (21:21)
[2024-12-01] MEDS: TOPROL XL 25 MG PO (21:23)
[2024-12-02 07:00] VITALS: BP 123/89
[2024-12-02] MEDS: HEPARIN 5000 UNITS SC (08:02)
[2024-12-02] MEDS: FOLVITE 1 MG PO (08:02)
[2024-12-02] MEDS: LUMINAL 64.8 MG PO (08:02)
[2024-12-02] MEDS: THIAMINE INJECTION 200 MG IV (08:02)
[2024-12-02 08:40] LABS: ALT (SGPT) 100 U/L (0-50); AST (SGOT) 116 U/L (17-59); Albumin 3.8 g/dl (3.5-5.0); Alkaline Phosphatase 118 U/L (38-126); Blood Urea Nitrogen 7 mg/dl (9-20); Calcium 8.8 mg/dl (8.4-10.2); Carbon Dioxide 29 mmol/L (22-30); Chloride 106 mmol/L (98-107); Estimated Creatinine Clearance 105 ml/min; Glucose 95 mg/dl (70-99); Potassium 4.2 mmol/L (3.5-5.1); Sodium 142 mmol/L (135-145); Total Protein 6.4 g/dl (6.3-8.2); eGFR > 60.00
--- NOTE | 2024-12-02 09:48 | W.PN.HOSP.TC ---
Today's Communication/Plan
-
Orthostatic vitals
Discharge
Assessment / Plan
Assessment / Plan
Gen-AAOx3, NAD
HEENT-NC, AT, anicteric, clear oral mm
Neck-supple
CV-reg, no M, +S1/S2
Lungs-clear B/L
Abd-soft, NT, ND
Ext-no edema
Musculoskeletal-no cyanosis, clubbing
Skin-warm and dry
Neuro-grossly non-focal
Psych-calm, cooperative
Alcoholic ketoacidosis -presentation with vomiting in the setting of heavy alcohol use. Last drink was Saturday.
Initial blood work showed elevated anion gap, 16. Beta hydroxybutyrate 0.42. Urine ketones positive.
Ketosis, acidosis resolved. Nausea resolved.
Tolerating diet.
Check orthostatic vitals given complaints of lightheadedness.
Alcohol induced hepatitis -improving, LFTs trending down. No indication for steroids.
Abdominal ultrasound notes adherent gallstones/sludge ball versus polyp, measuring 9 mm. CBD dilation. Hepatomegaly and increased echogenicity in the liver compatible with underlying hepatocellular disease, likely fatty liver.
MRI completed, shows severe diffuse hepatic steatosis, mild hepatomegaly, mild gallbladder distention and gallbladder adenomyomatosis. No evidence of cholelithiasis, gallbladder wall thickening, pericholecystic inflammation. No
choledocholithiasis. Pancreas appears normal. Pancreatic duct is mildly distended, 4.5 mm in the head of the pancreas.
Will defer to GI to decide on outpatient consideration of cholecystectomy given gallbladder adenomyomatosis.
Severe alcohol use disorder -patient interested in quitting. He states that he was in AA before. Wants to call his sponsor on discharge. Offered him social work assistance but he declined.
Alcohol withdrawal syndrome -continue benzodiazepines, phenobarbital. Thiamine, folic acid. No significant tremor on exam today.
Tobacco dependence -abstinence recommended.
Nonischemic cardiomyopathy -known to Dr. Salazar.
History of bladder cancer -s/p radical cystoprostatectomy with ileal conduit and end ileostomy, 12/19/2021.
History of urethral stricture
KANDIS -CPAP intolerant.
Depression/anxiety disorder
Impaired fasting glucose -last hemoglobin A1c 6.1%, 04/18/2024.
Insomnia -probably multifactorial etiology including alcohol use. Sleep hygiene discussed in detail with patient. Would avoid sleep aid for now given his need for phenobarbital on discharge. Patient states melatonin does not help.
Obesity due to excess calories -weight loss encouraged.
Full code
Dispo -stable for discharge home today. Check orthostatic vitals prior to discharge.
Follow-up with PCP next week.
35 minutes spent in discharge process.
Anticipated Discharge: Today
Subjective/Interval History
-
Date of Service: December 02, 2024
Patient seen and examined. Complaining of transient lightheadedness with standing.
Objective Data
-
Labs:
Laboratory Results
12/02/24
07:29
Sodium 142
Potassium 4.2
Chloride 106
Carbon Dioxide 29
BUN 7 L
Creatinine 0.9
Glucose 95
Calcium 8.8
Total Bilirubin 1.0
AST 116 H
ALT 100 H
Alkaline Phosphatase 118
Vital Signs:
Vital Signs
Temp Pulse Resp BP Pulse Ox
97.9 F 72 12 123/89 97
12/02/24 07:00 12/02/24 07:00 12/02/24 07:00 12/02/24 07:00 12/02/24 07:00
I&O
12/01/24 12/02/24 12/03/24
06:59 06:59 06:59
Intake Total 3600 / 3600
Balance 3600 / 3600
Review of Systems
-
History Source: Patient
All other systems: Reviewed and negative
--- NOTE | 2024-12-02 09:55 | W.DS.TRANS ---
DC Summary - Outplacement Consultant
-
Discharge Instructions:
Discharge Diagnosis/Procedures Alcoholic ketoacidosis, alcohol induced
hepatitis, alcohol withdrawal syndrome
Diet Regular
Activity As tolerated
Driving Restrictions No driving while taking phenobarbital
Bathing Restrictions None
Instructions:
Stand-Alone Forms:
Changes to Home Medications: No
Discharge Medications:
DC Medications w/original date entered in [facility]
aspirin 81 mg tablet,delayed release (Rodrigo Low Dose Aspirin) 81 mg PO HS Blood clot prevention/tx 02/16/21
metoprolol succinate 25 mg tablet,extended release 24 hr 25 mg PO HS Blood pressure 08/16/21
citalopram 20 mg tablet 40 mg PO HS depression/anxiety 04/17/24
folic acid 1 mg tablet 1 mg PO DAILY #30 tabs 12/02/24
phenobarbital 32.4 mg tablet 32.4 mg PO TID #16 tabs 12/02/24
thiamine mononitrate (vit B1) 100 mg tablet 100 mg PO BID #60 tabs 12/02/24
Home Medication Changes
Pending Results: No
[2024-12-02 10:13] VITALS: BP 112/83; BP 122/84; BP 133/85; PULSE 79; PULSE 82; PULSE 94
== END 2024-12-02 12:17 | disposition home or self-care (01) | DRG 433 ==
LOC: 4 EAST ACU 22:05
PROVIDERS: Clinical Nurse Specialist Family Health; Emergency Medicine; Nurse Practitioner; Physician Assistant; Registered Nurse; ADMITTING PHYSICIAN Internal Medicine; ATTENDING PHYSICIAN Hospitalist; CONSULT PHYSICIAN Internal Medicine Gastroenterology; EMERGENCY PHYSICIAN Emergency Medicine; PRIMARYCARE PHYSICIAN Internal Medicine
DX: K70.10 Alcoholic hepatitis without ascites (principal); E87.29 Other acidosis; F10.239 Alcohol dependence with withdrawal, unspecified; I42.8 Other cardiomyopathies; F17.200 Nicotine dependence, unspecified, uncomplicated; K83.8 Other specified diseases of biliary tract; I50.9 Heart failure, unspecified; I11.0 Hypertensive heart disease with heart failure; Z85.51 Personal history of malignant neoplasm of bladder; Z90.79 Acquired absence of other genital organ(s); E11.9 Type 2 diabetes mellitus without complications; F41.9 Anxiety disorder, unspecified; F32.A Depression, unspecified; N40.0 Benign prostatic hyperplasia without lower urinary tract symptoms; Z85.46 Personal history of malignant neoplasm of prostate; E66.811 Obesity, class 1; Z68.29 Body mass index [BMI] 29.0-29.9, adult; G47.33 Obstructive sleep apnea (adult) (pediatric); Z86.0100 Personal history of colon polyps, unspecified; K76.0 Fatty (change of) liver, not elsewhere classified; K82.8 Other specified diseases of gallbladder; Z11.52 Encounter for screening for COVID-19
CPT/HCPCS: 74181; 76700; 80048; 80053; 80076; 80306; 81003; 81015; 82010; 82077; 82977; 83690; 83735; 84100; 84484; 85025; 85610; 86803; 87086; 87340; 87389; 87502; 87811; 93005; 96361; 96374; 96375; 96376; 99285; 99406

== ENCOUNTER 2024-12-24 06:27 | Day surgery (SDC) | payer OTHER, SELFPAY ==
[2024-12-24 07:15] LABS: Glucose - Point of Care 103 mg/dl (70-99)
== END 2024-12-24 08:53 | disposition home or self-care (01) ==
LOC: GI 06:27
PROVIDERS: ATTENDING PHYSICIAN Internal Medicine Gastroenterology
DX: Z12.11 Encounter for screening for malignant neoplasm of colon (principal); D12.2 Benign neoplasm of ascending colon; K63.5 Polyp of colon; K62.1 Rectal polyp; Z86.0100 Personal history of colon polyps, unspecified
CPT/HCPCS: 45385; 45380; 82962; 88305